=== PATIENT | female | born 1945 | race Hispanic/Latino ===

== ENCOUNTER 2017-01-21 09:43 | Emergency (ER) | payer MEDICARE, OTHER ==
[2017-01-21 09:52] VITALS: BMI 31.4
[2017-01-21] MEDS ORDERED: Sodium Chloride 0.9% 1,000 ML IV STA (10:03)
[2017-01-21] MEDS ORDERED: Alum-Mag Hydrox-Simethicone Susp (30 mL) PO STA (10:04)
[2017-01-21 10:30] LABS: EOS # 0.1 (0.0-0.7); EOS % 2.2 % (1.5-5.0); GRAN # 2.97 (1.4-6.5); GRAN % 71.5 % (50.0-68.0); HEMOGLOBIN 10.8 gm/dL (12.0-16.0); LYMPH # 0.9 (1.2-3.4); LYMPH % 20.5 % (22.0-35.0); MEAN CELL VOLUME 91.3 fL (80.0-105.0); MEAN CORPUSCULAR HEMOGLOBIN 30.4 pg (25.0-35.0); MEAN CORPUSCULAR HGB CONC 33.3 g/dl (31.0-37.0); MEAN PLATELET VOLUME 10.2 fl (7.0-11.0); MONO # 0.2 (0.1-0.6); MONO % 5.8 % (1.0-6.0); PLATELET COUNT 161 10^3/uL (120.0-450.0); RBC 3.55 10^6/uL (3.5-6.1); RED CELL DISTRIBUTION WIDTH 13.1 % (11.5-14.5); WHITE BLOOD COUNT 4.2 10^3/ul (4.5-11.0)
[2017-01-21 10:40] LABS: ALB/GLOB RATIO 1.4 (1.1-1.8); ALBUMIN 3.8 g/dL (3.0-4.8); ALT/SGPT 13 U/L (7-56); AST/SGOT 21 U/L (15-39); BLOOD UREA NITROGEN 21 mg/dL (7-21); CALCIUM 9.2 mg/dL (8.4-10.5); GFR AFRICAN-AMERICAN > 60; GFR NON-AFRICAN AMERICAN > 60; LIPASE 57 U/L (23-300)
[2017-01-21 11:09] LABS: TROPONIN I < 0.01 ng/mL
--- NOTE | 2017-01-21 11:18 | ED PDOC ---
Arrival/HPI - General Historian: Patient, Spouse - General Chief Complaint: Abdominal Pain Time Seen by Provider: 01/21/17 10:03 - History of Present Illness Narrative History of Present Illness (Text): 71 F with PMH of HTN, Parkinson's disease, GERD presents to ED with complaint of epigastric discomfort and nausea. Patient states that it started yesterday while she was at her niece's birthday alliance party. She states that she ate a pretzel with spicy mustard and shortly after she developed symptoms. Patient states pain is minimal and more of a discomfort. She reports its located in epigastric region with radiation to above xiphoid. Mylanta helped alleviate her discomfort but returned shortly after. Denies fever/chills, cp, palpitations, sob, vomiting , diarrhea, incontinence, numbness/tingling. (Hnug Henderson) Past Medical History - Provider Review Nursing Documentation Reviewed: Yes - Travel History Have you recently traveled outside [place] w/in the past 3 mons?: No - Infectious Disease Hx of Infectious Diseases: None - Tetanus Immunization Tetanus Immunization: Unknown - Cardiac Hx Hypertension: Yes - Neurological Hx Parkinson's Disease: Yes - Musculoskeletal/Rheumatological Hx Arthritis: Yes - Psychiatric Hx Depression: No Hx Emotional Abuse: No Hx Physical Abuse: No Hx Substance Use: No - Past Surgical History Past Surgical History: No Previous - Anesthesia Hx Anesthesia: No - Suicidal Assessment Feels Threatened In Home Enviroment: No Family/Social History - Physician Review Nursing Documentation Reviewed: Yes Family/Social History: Unknown Family HX Smoking Status: Never Smoked Hx Alcohol Use: No Hx Substance Use: No Hx Substance Use Treatment: No Allergies/Home Meds Allergies/Adverse Reactions: Allergies Penicillins Allergy (Verified 01/21/17 09:53) RASH Home Medications: Home Meds Medication Instructions Recorded Confirmed Losartan [Cozaar] 50 mg PO 10/19/13 10/19/13 Propranolol Hydrochloride [Inderal] 10 mg PO BID 10/19/13 10/19/13 Review of Systems - Review of Systems Constitutional: absent: Fatigue, Weight Change, Fevers Eyes: absent: Vision Changes, Photophobia, Eye Pain ENT: absent: Hearing Changes, Tinnitus, TMJ Pain, Voice Changes, Sore Throat, Rhinorrhea, Epistaxis, Sinus Congestion Respiratory: absent: SOB, Cough, Sputum, Wheezing Cardiovascular: Chest Pain. absent: Palpitations, Edema, Calf Pain, ROSAS, Orthopnea, Syncope Gastrointestinal: Abdominal Pain, Nausea. absent: Diarrhea, Vomiting Genitourinary Female: absent: Dysuria, Frequency, Hematuria Musculoskeletal: Arthralgias, Myalgias Skin: absent: Skin Lesions, Laceration Neurological: absent: Headache, Dizziness Endocrine: absent: Diaphoresis, Polyuria, Polydipsia Hemo/Lymphatic: absent: Adenopathy, Easy Bleeding, Easy Bruising Psychiatric: absent: Anxiety, Depression, Suicidal Ideation Physical Exam Vital Signs Reviewed: Yes Temperature: Afebrile Blood Pressure: Hypertensive Pulse: Regular Respiratory Rate: Normal Appearance: Positive for: Uncomfortable Pain Distress: Mild Mental Status: Positive for: Alert and Oriented X 3 - Systems Exam Head: Present: Atraumatic, Normocephalic Pupils: Present: PERRL Extroacular Muscles: Present: EOMI Conjunctiva: Present: Normal Ears: Present: Normal Mouth: Present: Moist Mucous Membranes Pharnyx: Present: Normal Nose (External): Present: Atraumatic Nose (Internal): Present: Normal Inspection Neck: Present: Normal Range of Motion Respiratory/Chest: Present: Clear to Auscultation, Good Air Exchange Cardiovascular: Present: Regular Rate and Rhythm, Normal S1, S2, Peripheal Pulses Present Abdomen: Present: Normal Bowel Sounds. No: Tenderness, Distention, Peritoneal Signs, Rebound, Guarding Back: No: CVA Tenderness Upper Extremity: Present: NORMAL PULSES, Neurovascularly Intact, Capillary Refill < 2s Lower Extremity: Present: CALF TENDERNESS (Right), NORMAL PULSES, Swelling, Neurovascularly Intact, Capillary Refill < 2 s, Other (scattered small ecchymosis ) Neurological: Present: GCS=15, CN II-XII Intact, Speech Normal, Motor Func Grossly Intact, Normal Sensory Function Skin: Present: Warm, Dry, Normal Color Lymphatic: No: Cervical Adenopathy, Axillary Adenopathy, Inguinal Adenopathy Psychiatric: Present: Alert, Oriented x 3, Normal Insight, Normal Concentration Vital Signs Temp Pulse Resp BP Pulse Ox 01/21/17 13:20 98 F 80 16 152/80 H 98 01/21/17 11:30 62 16 154/84 H 98 01/21/17 10:12 55 L 19 163/83 H 99 01/21/17 09:55 97.9 F 55 L 18 182/94 H 98 Medical Decision Making Re-evaluation Time: 01:00 Reassessment Condition: Re-examined, Improved ED Course and Treatment: CBC, CMP, CXR, LE doppler, EKG, cardiac enzymes ordered. IV fluids, Zofran, IV pepcid, and Maalox given. EKG sinus sophy at 53 bpm. Cardiac enzymes negative. LE doppler negative. Labs reviewed and no significant change from baseline. Patient feeling better, medically stable for discharge. (Hung Henderson) - Lab Interpretations Lab Results: 01/21/17 10:15 01/21/17 10:15 Lab Results 01/21/17 10:15: Sodium 142, Potassium 3.9, Chloride 108 H, Carbon Dioxide 27, Anion Gap 11, BUN 21, Creatinine 0.9, Est GFR ( Amer) > 60, Est GFR (Non- Af Amer) > 60, Random Glucose 101, Calcium 9.2, Total Bilirubin 0.9, AST 21, ALT 13, Alkaline Phosphatase 58, Lactate Dehydrogenase 502, Total Creatine Kinase 124, Troponin I < 0.01, Total Protein 6.5, Albumin 3.8, Globulin 2.7, Albumin/Globulin Ratio 1.4, Lipase 57 01/21/17 10:15: WBC 4.2 L, RBC 3.55, Hgb 10.8 L, Hct 32.4 L, MCV 91.3, MCH 30.4 , MCHC 33.3, RDW 13.1, Plt Count 161, MPV 10.2, Gran % 71.5 H, Lymph % (Auto) 20.5 L, [place] % (Auto) 5.8, Eos % (Auto) 2.2, Baso % (Auto) 0.0, Gran # 2.97, Lymph # 0.9 L, [place] # 0.2, Eos # 0.1, Baso # 0.00 - RAD Interpretation Radiology Orders: 01/21/17 11:05 CHEST PORTABLE [RAD] Stat 01/21/17 11:10 DUPLEX LOWER EXTRM VEIN BILAT [US] Stat - Medication Orders Current Medication Orders: Discontinued Medications Al Hydrox/Mg Hydrox/Simethicone (Maalox Plus 30 Ml) 30 ml PO STAT STA Stop: 01/21/17 10:05 Last Admin: 01/21/17 10:27 Dose: 30 ml Famotidine (Pepcid) 20 mg IVP STAT STA Stop: 01/21/17 10:04 Last Admin: 01/21/17 10:27 Dose: 20 mg Sodium Chloride (Sodium Chloride 0.9%) 1,000 mls @ 100 mls/hr IV .Q10H STA Stop: 01/21/17 20:02 Last Admin: 01/21/17 10:26 Dose: 100 mls/hr Ondansetron HCl (Zofran Inj) 4 mg IVP STAT STA Stop: 01/21/17 10:04 Last Admin: 01/21/17 10:27 Dose: 4 mg - PA / METAL DRAWER / Resident Statement MD/DO has reviewed & agrees with the documentation as recorded. MD/DO has examined the patient and agrees with the treatment plan. Disposition/Present on Arrival - Present on Arrival Any Indicators Present on Arrival: No History of DVT/PE: No History of Uncontrolled Diabetes: No Urinary Catheter: No History of Decub. Ulcer: No History Surgical Site Infection Following: None - Disposition Have Diagnosis and Disposition been Completed?: Yes Disposition Time: 01:00 Patient Plan: Discharge - Disposition Diagnosis: Gastritis Disposition: HOME/ ROUTINE Condition: STABLE Discharge Instructions (ExitCare): Gastritis (ED) Additional Instructions: Thank you for letting us take care of you today. Your provider was Dr. Henderson /Dr. Dow. You were treated for Gastritis. The emergency medical care you received today was directed at your acute symptoms. If you were prescribed any medication, please fill it and take as directed. It may take several days for your symptoms to resolve. Return to the Emergency Department if your symptoms worsen, do not improve, or if you have any other problems. Please contact your doctor or call one of the physicians/clinics you have been referred to that are listed on the Patient Visit Information form that is included in your discharge packet. Bring any paperwork you were given at discharge with you along with any medications you are taking to your follow up visit. Our treatment cannot replace ongoing medical care by a primary care provider (PCP) outside of the emergency department. Thank you for allowing the [facility] team to be part of your care today. If you had an X-Ray or CT scan: A Radiologist will review the ED reading if any change in treatment is needed we will contact you. If you had a blood, urine, or wound culture: It will take several days for the results, if any change in treatment is needed we will contact you. If you had an STI test: It will take 48 hours for the results. Please call after 1 week if you have not heard back. Take Zantac as prescribed Avoid alcohol, smoking, caffeine, chocolate, spicy foods Follow up with PMD in 2-3 days Please return to ED if symptoms persist or condition worsens Prescriptions: Ranitidine HCl [Zantac] 150 mg PO BID #20 tablet Referrals: oJse Fuentes MD [Primary Care Provider] - Follow up with primary
--- NOTE | 2017-01-21 11:35 | RAD ---
HISTORY: r/o infiltrate COMPARISON: 07/27/2016. FINDINGS: LUNGS: There is mild pulmonary venous congestion. No focal consolidation. There is linear scarring in the left lung base. PLEURA: No significant pleural effusion identified, no pneumothorax apparent. CARDIOVASCULAR: The heart is normal in size. OSSEOUS STRUCTURES: No significant abnormalities. VISUALIZED UPPER ABDOMEN: Normal. OTHER FINDINGS: None. IMPRESSION: Mild pulmonary venous congestion. No active pulmonary disease.
[2017-01-21 13:51] VITALS: RESP 16; O2SAT 98
[2017-01-21 14:12] VITALS: BP 152/80; PULSE 80; TEMP 98
--- NOTE | 2017-01-21 16:49 | US ---
HISTORY: Leg pain and swelling. Evaluate for DVT PHYSICIAN(S): Eric Vela MD. TECHNIQUE: Duplex sonography and color-flow Doppler with graded compression were used to evaluate the deep venous systems of both lower extremities. FINDINGS: The visualized deep venous systems of both lower extremities are sonographically normal and compressible. Normal wave forms and augmentation are seen. There is no sonographic evidence for deep venous thrombosis in the visualized segments of both lower extremities. IMPRESSION: No sonographic evidence for deep venous thrombosis in the visualized segments of both lower extremities.
--- NOTE | 2017-01-21 20:56 | CARD ---
APPROVED REPORT EKG Measurement Heart [id number] IL 160P [id number] <Conclusion> Sinus bradycardia Minimal voltage criteria for LVH, may be normal variant Borderline ECG
== END 2017-01-21 14:22 | disposition home or self-care (01) ==
LOC: ED 09:43
DX: K29.70 Gastritis, unspecified, without bleeding (principal); I10 Essential (primary) hypertension; G20 Parkinson's disease; K21.9 Gastro-esophageal reflux disease without esophagitis
CPT/HCPCS: 71010; 80053; 82550; 83615; 83690; 84484; 85025; 93005; 93970; 96361; 96374; 96375; 99285; J2405; J7040

== ENCOUNTER 2017-06-25 06:13 | Inpatient (IN) | payer MEDICARE, OTHER, BC ==
[2017-06-25 06:17] VITALS: BMI 33.3
--- NOTE | 2017-06-25 07:40 | ED PDOC ---
Arrival/HPI - General Chief Complaint: Trauma Time Seen by Provider: 06/25/17 07:06 Historian: Patient, Spouse - History of Present Illness Narrative History of Present Illness (Text): 06/25/17 07:15 A 72 year old female, whose past medical history includes Parkinson's disease, arthritis, and hypertension, presents to the emergency department status post fall, which occurred prior to arrival. The patient states that she had a right hip replacement 8 weeks ago and her first week home from rehab she did not want to disturb her so she got out of bed on her own and fell backwards from walker. The patient is unsure if she hit her head but states she did hit her right shoulder. She denies any fever, chest pain, shortness of breath, dizziness, headaches, loss of consciousness, right hip pain, back pain, or any other complaints at this time. Time/Duration: Prior to Arrival Symptom Onset: Sudden Symptom Course: Unchanged Activities at Onset: Light Context: Walking, Home Past Medical History - Provider Review Nursing Documentation Reviewed: Yes - Infectious Disease Hx of Infectious Diseases: None - Tetanus Immunization Tetanus Immunization: Unknown - Cardiac Hx Cardiac Disorders: Yes Hx Hypertension: Yes - Pulmonary Hx Respiratory Disorders: No - Neurological Hx Neurological Disorder: Yes Hx Parkinson's Disease: Yes - HEENT Hx HEENT Disorder: No - Renal Hx Renal Disorder: No - Endocrine/Metabolic Hx Endocrine Disorders: No - Hematological/Oncological Hx Blood Disorders: No - Integumentary Hx Dermatological Disorder: No - Musculoskeletal/Rheumatological Hx Musculoskeletal Disorders: Yes Hx Arthritis: Yes - Gastrointestinal Hx Gastrointestinal Disorders: No - Genitourinary/Gynecological Hx Genitourinary Disorders: No - Psychiatric Hx Psychophysiologic Disorder: No Hx Depression: No Hx Emotional Abuse: No Hx Physical Abuse: No Hx Substance Use: No - Past Surgical History Past Surgical History: No Previous - Surgical History Hx Open Reduction Internal Fixation: Yes Other/Comment: R hip replacement - Anesthesia Hx Anesthesia: No - Suicidal Assessment Feels Threatened In Home Enviroment: No Family/Social History - Physician Review Nursing Documentation Reviewed: Yes Family/Social History: No Known Family HX Smoking Status: Never Smoked Hx Alcohol Use: No Hx Substance Use: No Hx Substance Use Treatment: No Allergies/Home Meds Allergies/Adverse Reactions: Allergies Penicillins Allergy (Verified 06/25/17 12:09) RASH Home Medications: Home Meds Medication Instructions Recorded Confirmed Carbidopa/Levodopa 1 tab PO TID 06/25/17 06/25/17 [Carbidopa-Levodopa 25-100 Tab] Carvedilol [Coreg] 3.125 mg PO BID 06/25/17 06/25/17 Clonazepam [Klonopin] 0.5 mg PO TID 06/25/17 06/25/17 Diclofenac Sodium [Voltaren] 75 mg PO BID 06/25/17 06/25/17 Escitalopram [Lexapro] 20 mg PO DAILY 06/25/17 06/25/17 Gabapentin [Neurontin] 100 mg PO BID 06/25/17 06/25/17 Metoclopramide [Reglan] 5 mg PO TID 06/25/17 06/25/17 Omeprazole [Omeprazole] 40 mg PO DAILY 06/25/17 06/25/17 Rosuvastatin Calcium [Crestor] 10 mg PO DAILY 06/25/17 06/25/17 Zolpidem [Ambien] 5 mg PO DAILY 06/25/17 06/25/17 Review of Systems - Physician Review All systems were reviewed & negative as marked: Yes - Review of Systems Constitutional: absent: Fevers Respiratory: absent: SOB Cardiovascular: absent: Chest Pain Musculoskeletal: Other (right shoulder pain ). absent: Back Pain, Neck Pain Neurological: absent: Headache, Dizziness Physical Exam - Physical Exam Narrative Physical Exam (Text): 06/25/17 07:43 Head: Tender to posterior scalp although no bony deformity, no ecchymosis noted , no laceration noted, negative Young's sign. Eyes: PERRL. EOMI. Conjunctivae are not pale. ENT: Mucous membranes are moist and intact. Oropharynx is clear and symmetric. Neck: Supple. Full ROM. No JVD. No lymphadenopathy. Posterior midline neck pain, no deformity. Cardiovascular: Regular rate. Regular rhythm. No murmurs, rubs, or gallops. Distal pulses are 2+ and symmetric. Pulmonary/Chest: No evidence of respiratory distress. Clear to auscultation bilaterally. No wheezing, rales or rhonchi. Abdominal: Soft and non-distended. There is no tenderness. No rebound, guarding, or rigidity. No organomegaly. Good bowel sounds. Back: No CVA tenderness. Extremities: Pain to right anterior shoulder, no deformity, no clavicular pain, full range of motion of shoulder, elbow and wrist, pain to right knee with palpation anteriorly but no ligamentous laxity, there is pain with flexion and extension of knee, pain to right ankle lateral malleolus, no deformity or soft tissue swelling, mild pain to right lateral hip, no left sided pain noted, strong distal pulses Skin: Skin is warm and dry. No lacerations or abscess. Neurological: Alert, awake. Motor and sensory intact, mild tremor at baseline. No slurred speech or facial droop. Psychiatric: Good eye contact. Normal interaction, affect, and behavior. Vital Signs Reviewed: Yes Vital Signs Temp Pulse Resp BP Pulse Ox 06/25/17 09:34 67 182/90 H 06/25/17 09:18 98.5 F 68 19 189/94 H 97 06/25/17 06:18 98.1 F 62 18 164/87 H 96 Temperature: Afebrile Blood Pressure: Hypertensive Pulse: Regular Respiratory Rate: Normal Appearance: Positive for: Well-Appearing, Non-Toxic, Uncomfortable Pain Distress: Mild Mental Status: Positive for: Alert and Oriented X 3 Medical Decision Making ED Course and Treatment: 06/25/17 07:44 Impression: A 72 year old female, status post fall. Differential Diagnosis included but are not limited to: Contusion vs. vlose headed injury vs. fracture Plan: -- Cervical Spine CT -- HEad CT -- EKG -- Radiology: ankle right, hip right, knee w' patella right -- Urinalysis -- Reassess and disposition Progress Notes: Patient with recent hip surgery, sustained fall. No neuro deficits at this time , but given hx of Parkinsons as well as current injuries unable to ambulate. 06/25/17 08:38 PROCEDURE: CT Cervical Spine without contrast [employer] Service Team Member : Saray Trujillo MD Report Date : 06/25/2017 08:23:59 HISTORY:<neck pain after fall> COMPARISON:None available. FINDINGS: VERTEBRAE:No fracture. Normal alignment. No destructive bony lesion. DISCS/SPINAL CANAL/NEURAL FORAMINA:Moderate degenerative disc changes more prominent at C5-C6. Moderate narrowing of the intervertebral disc space at C5- C6. Osteophyte disc bulge complex noted at C5-C6 and C6-C7. PARASPINAL SOFT TISSUES:Unremarkable. OTHER FINDINGS:Mild diffuse osteopenia is noted. IMPRESSION: No evidence of acute displaced fracture or subluxation at the cervical spine. Moderate degenerative changes more prominent at C5-C6. Mild diffuse osteopenia. PROCEDURE: CT HEAD WITHOUT CONTRAST. Seafood Service Team Member : Eric Mclain MD Report Date : 06/25/2017 08:18:14 HISTORY:fall, head injury, headache COMPARISON:None available. FINDINGS: HEMORRHAGE:No intracranial hemorrhage. BRAIN:No mass effect or edema. Minimal atrophy consistent with patient age. No evidence of acute infarct. VENTRICLES:Unremarkable. No hydrocephalus. CALVARIUM:Unremarkable. PARANASAL SINUSES:Unremarkable as visualized. No significant inflammatory changes. MASTOID AIR CELLS:Unremarkable as visualized. No inflammatory changes. OTHER FINDINGS:None. IMPRESSION: No intracranial hemorrhage. Unremarkable examination. Labs and imaging reviewed. Will admit to Dr. Katz service for difficulty ambulating, multiple contusions, closed head injury. - Lab Interpretations Lab Results: 06/25/17 07:53 06/25/17 07:53 Lab Results 06/25/17 07:53: Sodium 145, Potassium 3.9, Chloride 107, Carbon Dioxide 28, Anion Gap 14, BUN 16, Creatinine 0.8, Est GFR ( Amer) > 60, Est GFR (Non- Af Amer) > 60, Random Glucose 94, Calcium 9.9, Total Bilirubin 0.7, AST 31, ALT 36, Alkaline Phosphatase 71, Lactate Dehydrogenase 497, Total Creatine Kinase 52 , Troponin I < 0.01, Total Protein 6.9, Albumin 4.0, Globulin 2.9, Albumin/ Globulin Ratio 1.4 06/25/17 07:53: PT 12.8 H, INR 1.16 H, APTT 27.5 06/25/17 07:53: WBC 5.7 D, RBC 3.82, Hgb 11.3 L, Hct 34.6 L, MCV 90.6, MCH 29.6 , MCHC 32.7, RDW 14.4, Plt Count 228, MPV 9.5, Gran % 76.7 H, Lymph % (Auto) 16.2 L, [place] % (Auto) 5.1, Eos % (Auto) 1.8, Baso % (Auto) 0.2, Gran # 4.37, Lymph # 0.9 L, [place] # 0.3, Eos # 0.1, Baso # 0.01 06/25/17 07:48: Urine Color Straw, Urine Appearance Clear, Urine pH 6.5, Ur Specific [place] <= 1.005, Urine Protein Negative, Urine Glucose (UA) Negative, Urine Ketones Negative, Urine Blood Trace-intact H, Urine Nitrate Negative, Urine Bilirubin Negative, Urine Urobilinogen 0.2, Ur Leukocyte Esterase Negative , Urine RBC 0 - 2, Urine WBC Negative, Ur Epithelial Cells 0 - 2, Calcium Oxalate Crystal Rare, Urine Bacteria Trace - RAD Interpretation Radiology Orders: 06/25/17 07:21 HEAD W/O CONTRAST [CT] Stat CHEST ONE VIEW [RAD] Stat 06/25/17 07:22 CERVICAL SPINE W/O CONTRAST [CT] Stat 06/25/17 07:23 KNEE W PATELLA RIGHT 3 VIEW [RAD] Stat SHOULDER RIGHT [RAD] Stat 06/25/17 07:24 ANKLE RIGHT 3 VIEWS ROUTINE [RAD] Stat Hip Right [HIP MIN 2V W/ PELVIS RT] [RAD] Stat - Medication Orders Current Medication Orders: Carbidopa/Levodopa (Sinemet) 1 tab PO TID COUNTS INCLUDE 234 BEDS AT THE [facility] Last Admin: 06/28/17 18:36 Dose: 1 tab Carvedilol (Coreg) 3.125 mg PO BID COUNTS INCLUDE 234 BEDS AT THE [facility] Last Admin: 06/28/17 18:35 Dose: 3.125 mg Clonazepam (Klonopin) 0.5 mg PO BID PRN; Protocol PRN Reason: Anxiety Last Admin: 06/28/17 18:36 Dose: 0.5 mg Behavioural Document 06/28/17 18:36 LMN (Rec: 06/28/17 18:36 N [place] [id number]) Maintenance Maintenance Dose Yes Enoxaparin Sodium (Lovenox) 40 mg SC DAILY COUNTS INCLUDE 234 BEDS AT THE [facility] PRN Reason: Protocol Last Admin: 06/28/17 09:27 Dose: 40 mg Subcutaneous Administrations Document 06/28/17 09:27 LMN (Rec: 06/28/17 09:27 [place] [id number]) Charges for Administration # of Subcutaneous Administrations 1 Escitalopram Oxalate (Lexapro) 20 mg PO DAILY COUNTS INCLUDE 234 BEDS AT THE [facility] Last Admin: 06/28/17 09:27 Dose: 20 mg Gabapentin (Neurontin) 100 mg PO BID COUNTS INCLUDE 234 BEDS AT THE [facility] PRN Reason: Protocol Last Admin: 06/28/17 18:36 Dose: 100 mg Behavioural Document 06/28/17 18:36 LMN (Rec: 06/28/17 18:36 LMN [place] [id number]) Maintenance Maintenance Dose Yes Metoclopramide HCl (Reglan) 5 mg PO AC COUNTS INCLUDE 234 BEDS AT THE [facility] Last Admin: 06/28/17 16:51 Dose: 5 mg Pantoprazole Sodium (Protonix Ec Tab) 40 mg PO 0600 COUNTS INCLUDE 234 BEDS AT THE [facility] Last Admin: 06/28/17 05:10 Dose: 40 mg Polyethylene Glycol (Miralax) 17 gm PO DAILY COUNTS INCLUDE 234 BEDS AT THE [facility] Last Admin: 06/28/17 09:29 Dose: 17 gm Tramadol HCl (Ultram) 50 mg PO TID COUNTS INCLUDE 234 BEDS AT THE [facility] Last Admin: 06/28/17 18:37 Dose: 50 mg MAR Pain Assessment Document 06/28/17 18:37 LMN (Rec: 06/28/17 18:37 LMN [id number]) Pain Reassessment Is this a pain reassessment? No Presence of Pain Presence of Pain Yes Zolpidem Tartrate (Ambien) 5 mg PO HS COUNTS INCLUDE 234 BEDS AT THE [facility] PRN Reason: Protocol Last Admin: 06/27/17 21:25 Dose: 5 mg Behavioural Document 06/27/17 21:25 BN (Rec: 06/27/17 21:25 BN [place] [id number]) Maintenance Maintenance Dose Yes Re-Assess: Reassess Psych Meds Document 06/27/17 22:25 BN (Rec: 06/28/17 04:50 BN [id number] [place] [facility] [place] Reassess Psych Med Effective Discontinued Medications Carvedilol (Coreg) 3.125 mg PO STAT STA Stop: 06/25/17 09:26 Last Admin: 06/25/17 09:34 Dose: 3.125 mg MAR Pulse and Blood Pressure Document 06/25/17 09:34 LA (Rec: 06/25/17 09:37 LA [id number]) Pulse Pulse Rate (60-90) 67 Blood Pressure Blood Pressure (100/60-150/90) 182/90 Non-Formulary Medication (Omeprazole [Omeprazole]) 40 mg PO DAILY COUNTS INCLUDE 234 BEDS AT THE [facility] Pneumococcal Polyvalent Vaccine (Pneumovax 23 Vaccine) 0.5 ml IM .ONCE ONE Stop: 06/25/17 12:53 - Scribe Statement The provider has reviewed the documentation as recorded by the Scribwil Ordaz Provider Scribe Attestation: All medical record entries made by the Scribe were at my direction and personally dictated by me. I have reviewed the chart and agree that the record accurately reflects my personal performance of the history, physical exam, medical decision making, and the department course for this patient. I have also personally directed, reviewed, and agree with the discharge instructions and disposition. Disposition/Present on Arrival - Present on Arrival Any Indicators Present on Arrival: No History of DVT/PE: No History of Uncontrolled Diabetes: No Urinary Catheter: No History of Decub. Ulcer: No History Surgical Site Infection Following: None - Disposition Have Diagnosis and Disposition been Completed?: Yes Diagnosis: Gait disturbance, Closed head injury, Multiple contusions, Leg pain Disposition: HOSPITALIZED Disposition Time: 09:30 Patient Plan: Admission Patient Problems: Current Active Problems Problem Status Onset Closed head injury Acute Gait disturbance Acute Leg pain Acute Multiple contusions Acute Condition: FAIR
[2017-06-25 08:03] LABS: PH,URINE 6.5 (4.7-8.0); URINE BILIRUBIN NEGATIVE (NEGATIVE); URINE BLOOD TRACE-INTACT (NEGATIVE); URINE GLUCOSE (UA) NEGATIVE (NEGATIVE); URINE KETONE NEGATIVE (NEGATIVE); URINE LEUKOCYTE ESTERASE NEGATIVE Leu/uL (NEGATIVE); URINE PROTEIN NEGATIVE mg/dL (<30 mg/dL); URINE UROBILINOGEN 0.2 E.U./dL (<1 E.U./dL)
[2017-06-25 08:05] LABS: URINE APPEARANCE CLEAR (CLEAR); URINE COLOR STRAW (YELLOW)
[2017-06-25 08:08] LABS: BASO # 0.01 K/mm3 (0.0-2.0); BASO % 0.2 % (0.0-3.0); EOS # 0.1 (0.0-0.7); EOS % 1.8 % (1.5-5.0); GRAN # 4.37 (1.4-6.5); GRAN % 76.7 % (50.0-68.0); HEMATOCRIT 34.6 % (36.0-48.0); LYMPH # 0.9 (1.2-3.4); LYMPH % 16.2 % (22.0-35.0); MEAN CELL VOLUME 90.6 fl (80.0-105.0); MEAN CORPUSCULAR HEMOGLOBIN 29.6 pg (25.0-35.0); MEAN CORPUSCULAR HGB CONC 32.7 g/dl (31.0-37.0); MEAN PLATELET VOLUME 9.5 fl (7.0-11.0); MONO # 0.3 (0.1-0.6); MONO % 5.1 % (1.0-6.0); RED CELL DISTRIBUTION WIDTH 14.4 % (11.5-14.5); WHITE BLOOD COUNT 5.7 10^3/ul (4.5-11.0)
[2017-06-25 08:19] LABS: INR 1.16 (0.93-1.08); PARTIAL THROMBOPLASTIN TIME 27.5 Seconds (25.1-36.5)
--- NOTE | 2017-06-25 08:20 | CT ---
PROCEDURE: CT HEAD WITHOUT CONTRAST. HISTORY: fall, head injury, headache COMPARISON: None available. TECHNIQUE: Axial computed tomography images were obtained through the head/brain without intravenous contrast. Radiation dose: Total exam DLP = 629.69 mGy-cm. This CT exam was performed using one or more of the following dose reduction techniques: Automated exposure control, adjustment of the mA and/or kV according to patient size, and/or use of iterative reconstruction technique. FINDINGS: HEMORRHAGE: No intracranial hemorrhage. BRAIN: No mass effect or edema. Minimal atrophy consistent with patient age. No evidence of acute infarct. VENTRICLES: Unremarkable. No hydrocephalus. CALVARIUM: Unremarkable. PARANASAL SINUSES: Unremarkable as visualized. No significant inflammatory changes. MASTOID AIR CELLS: Unremarkable as visualized. No inflammatory changes. OTHER FINDINGS: None. IMPRESSION: No intracranial hemorrhage. Unremarkable examination.
[2017-06-25 08:24] LABS: ALB/GLOB RATIO 1.4 (1.1-1.8); ALKALINE PHOSPHATASE 71 U/L (38-126); ALT/SGPT 36 U/L (7-56); AST/SGOT 31 U/L (14-36); BILIRUBIN,TOTAL 0.7 mg/dL (0.2-1.3); BLOOD UREA NITROGEN 16 mg/dL (7-21); CALCIUM 9.9 mg/dL (8.4-10.5); CARBON DIOXIDE 28 mmol/L (21-33); CHLORIDE 107 mmol/L (98-107); GFR AFRICAN-AMERICAN > 60; GLUCOSE,RANDOM 94 mg/dL (70-110); POTASSIUM 3.9 mmol/L (3.6-5.0); SODIUM 145 mmol/L (132-148); TOTAL PROTEIN 6.9 g/dL (5.8-8.3)
--- NOTE | 2017-06-25 08:25 | CT ---
PROCEDURE: CT Cervical Spine without contrast HISTORY: <neck pain after fall> COMPARISON: None available. TECHNIQUE: Axial computed tomography images were obtained of the cervical spine without the use of intravenous contrast. Coronal and sagittal reformatted images were created and reviewed. Radiation dose: Total exam DLP = 573.09 mGy-cm. This CT exam was performed using one or more of the following dose reduction techniques: Automated exposure control, adjustment of the mA and/or kV according to patient size, and/or use of iterative reconstruction technique. FINDINGS: VERTEBRAE: No fracture. Normal alignment. No destructive bony lesion. DISCS/SPINAL CANAL/NEURAL FORAMINA: Moderate degenerative disc changes more prominent at C5-C6. Moderate narrowing of the intervertebral disc space at C5-C6. Osteophyte disc bulge complex noted at C5-C6 and C6-C7. PARASPINAL SOFT TISSUES: Unremarkable. OTHER FINDINGS: Mild diffuse osteopenia is noted. IMPRESSION: No evidence of acute displaced fracture or subluxation at the cervical spine. Moderate degenerative changes more prominent at C5-C6. Mild diffuse osteopenia.
[2017-06-25 08:26] LABS: URINE BACTERIA TRACE (NEG); URINE CALCIUM OXALATE CRYSTALS RARE /hpf; URINE EPITHELIAL CELLS 0 - 2 /hpf (0-5); URINE RBC 0 - 2 /hpf (0-2); URINE WBC NEGATIVE /hpf (0-6)
[2017-06-25 08:34] LABS: TROPONIN I < 0.01 ng/mL
--- NOTE | 2017-06-25 09:42 | RAD ---
PROCEDURE: Right Ankle Radiographs. HISTORY: right ankle pain after fall COMPARISON: None FINDINGS: BONES: Normal. No fracture. JOINTS: Normal. No osteoarthritis. Ankle mortise maintained. Talar dome intact SOFT TISSUES: Normal. OTHER FINDINGS: None. IMPRESSION: Normal right ankle radiographs.
--- NOTE | 2017-06-25 10:22 | RAD ---
PROCEDURE: Right Hip Radiographs. HISTORY: right leg pain COMPARISON: None. FINDINGS: BONES: No acute fracture. JOINTS: Status post right hip arthroplasty. No evidence of prosthesis loosening. Prosthesis grossly intact. SOFT TISSUES: Normal. OTHER FINDINGS: None. IMPRESSION: Status post right hip arthroplasty. Otherwise unremarkable.
--- NOTE | 2017-06-25 10:22 | RAD ---
PROCEDURE: Right Knee Radiographs. HISTORY: knee pain after fall COMPARISON: None. FINDINGS: BONES: No acute fracture. JOINTS: Tricompartmental osteoarthritis, most pronounced on the lateral joint compartment. No articular erosion. JOINT EFFUSION: None. OTHER FINDINGS: None. IMPRESSION: Tricompartmental osteoarthritis. No acute fracture.
--- NOTE | 2017-06-25 10:23 | RAD ---
PROCEDURE: Radiographs of the Right Shoulder HISTORY: fall, right shoulder pain COMPARISON: No prior. FINDINGS: BONES: Normal. No fracture. JOINTS: Normal. Glenohumeral and acromioclavicular joints preserved. No osteoarthritis. SOFT TISSUES: Normal. OTHER FINDINGS: None. IMPRESSION: Normal radiographs of the right shoulder.
--- NOTE | 2017-06-25 10:24 | RAD ---
PROCEDURE: CHEST RADIOGRAPH, 1 VIEW HISTORY: fall COMPARISON: 01/21/2017 FINDINGS: LUNGS: No infiltrate. Linear scar/atelectasis at left lung base, laterally. Unchanged. No pulmonary mass. PLEURA: No pneumothorax or pleural fluid seen. CARDIOVASCULAR: Normal. OSSEOUS STRUCTURES: No significant abnormalities. VISUALIZED UPPER ABDOMEN: Normal. OTHER FINDINGS: None. IMPRESSION: No active disease.
--- NOTE | 2017-06-25 12:13 | CARD ---
APPROVED REPORT EKG Measurement Heart [id number] <Conclusion> Normal sinus rhythm LAD STTW changes No change
[2017-06-25] MEDS ORDERED: Influenza Vaccine 60 mcg/0.5 mL SYR (4YR UP) IM ONE (12:52)
[2017-06-25] MEDS ORDERED: Pneumococcal 23-Valent Vaccine IM ONE (12:52)
--- NOTE | 2017-06-25 14:09 | CP.PCM.HP ---
History of Present Illness - History of Present Illness History of Present Illness: 72 year old female with history of Parkinson's disease, hypertension, gastroesophageal reflux and arthritis presented to the emergency room with pain after suffering from a fall at home. Patient had right hip arthroplasty about 8 weeks ago and was discharged from rehab last week. She got out of bed on her own this morning and then fell backwards. She denies loss of consciousness, chest pain of shortness of breath. She complains of pain in her right hip, knee and leg. She is unable to ambulate at this time. Present on Admission - Present on Admission Any Indicators Present on Admission: No History of DVT/PE: No History of Uncontrolled Diabetes: No Urinary Catheter: No Decubitus Ulcer Present: No Review of Systems - Constitutional Constitutional: absent: Chills, Fever, Headache - Cardiovascular Cardiovascular: absent: Chest Pain, Diaphoresis, Dyspnea - Respiratory Respiratory: absent: Cough, Dyspnea, Hemoptysis - Gastrointestinal Gastrointestinal: absent: Abdominal Pain, Constipation, Vomiting Past Patient History - Infectious Disease Hx of Infectious Diseases: None - Tetanus Immunizations Tetanus Immunization: Unknown - Past Social History Smoking Status: Former Smoker - CARDIAC Hx Cardiac Disorders: Yes Hx Hypercholesterolemia: Yes Hx Hypertension: Yes - PULMONARY Hx Respiratory Disorders: Yes (SMOKED CIGARETTES H/O PK 1/2 QUIT) - NEUROLOGICAL Hx Neurological Disorder: Yes Hx Parkinson's Disease: Yes - HEENT Hx HEENT Problems: No - RENAL Hx Chronic Kidney Disease: No - ENDOCRINE/METABOLIC Hx Endocrine Disorders: No - HEMATOLOGICAL/ONCOLOGICAL Hx Blood Disorders: No - INTEGUMENTARY Hx Dermatological Problems: Yes Other/Comment: 06-25-17 RIGHT HIP SCARRING FROM POST REPLACEMENT. BRUISED RIGHT SHOULDER FROM FALL. - MUSCULOSKELETAL/RHEUMATOLOGICAL Hx Musculoskeletal Disorders: Yes Hx Arthritis: Yes Hx Falls: Yes (RECENT- 06-25-17) - GASTROINTESTINAL Hx Gastrointestinal Disorders: Yes (GASTRITIS) Hx Gastroesophageal Reflux: Yes - GENITOURINARY/GYNECOLOGICAL Hx Genitourinary Disorders: Yes Hx Urinary Tract Infection: Yes - PSYCHIATRIC Hx Psychophysiologic Disorder: Yes (INSOMNIA,SMOKED CIGARETTES H/O) Hx Anxiety: Yes Hx Depression: Yes Hx Emotional Abuse: No Hx Physical Abuse: No Hx Substance Use: No - SURGICAL HISTORY Hx Surgeries: Yes Other/Comment: R hip replacement - ANESTHESIA Hx Anesthesia: No Meds Allergies/Adverse Reactions: Allergies Allergy/AdvReac Type Severity Reaction Status Date / Time Penicillins Allergy RASH Verified 06/25/17 12:09 Physical Exam - Constitutional Appears: No Acute Distress - Head Exam Head Exam: ATRAUMATIC, NORMOCEPHALIC - Respiratory Exam Respiratory Exam: Clear to Auscultation Bilateral, NORMAL BREATHING PATTERN - Cardiovascular Exam Cardiovascular Exam: REGULAR RHYTHM, +S1, +S2 - GI/Abdominal Exam GI & Abdominal Exam: Normal Bowel Sounds, Soft. absent: Tenderness Results - Vital Signs Recent Vital Signs: Last Vital Signs Temp 98.1 F 06/25/17 12:08 Pulse 64 06/25/17 12:08 Resp 16 06/25/17 12:08 BP 176/91 H 06/25/17 12:08 Pulse Ox 97 06/25/17 10:50 - Labs Result Diagrams: 06/25/17 07:53 06/25/17 07:53 Assessment & Plan - Assessment and Plan (Free Text) Assessment: s/p fall Right knee and leg pain Contusion right shoulder Parkinson's disease GERD Migraine Arthritis Plan: Patient has pain of her right leg after fall. Will give Ultram for pain. continue Sinemet for Parkinson's disease continue Omeprazole for GERD We will consult Dr. Williamson for the pain of her right leg. She had right hip arthroplasty about 8 weeks ago at [facility].
--- NOTE | 2017-06-26 05:46 | CON ---
DATE: 06/25/2017 ORTHOPEDIC CONSULTATION The patient is a 72-year-old female. LOCATION: In room 573, bed 1. HISTORY OF PRESENT ILLNESS: The patient . The patient slipped and fell at home today and injured her right shoulder, her right knee, her right ankle, and the right hip. PAST MEDICAL HISTORY: Past history that she had her right hip replaced approximately 5 to 6 weeks ago with cemented prosthesis for rheumatoid arthritis. When she fell, she bumped her right hip and contused her right shoulder. She has an ecchymotic spot posterior 4 inches x 6 inches, right ankle swollen from rheumatoid arthritis type of picture, but the x-rays are within normal limits and all the x-rays done for workup are within normal limits of the right knee, right shoulder, and right ankle. The hip had a well placed prosthesis and she injured her head, but the CAT scan of cervical spine was within normal limits. The patient can lift her legs well off the bed. I am going to start early physical therapy to mobilize her so that she does not get stiff and hopefully she would be able to ambulate with a walker. FINAL DIAGNOSES: Contusion of right knee, right shoulder, right ankle, and contusion of postoperative right hip prosthesis. Mina Williamson DO
[2017-06-26] MEDS: Pantoprazole 40 mg EC Tab PO SCH (07:57)
[2017-06-26] MEDS: Enoxaparin 40 mg Syringe SC SCH (09:19)
--- NOTE | 2017-06-26 13:19 | PN ---
DATE: SUBJECTIVE: The patient is in [facility] in [place]. The patient is in room number 573, bed 1. She was admitted yesterday having had fall in the house and she has severe pain in the right side of her leg and unable to get up from the floor. She also had contusion in the right side, the back of chest in the scapular area. The patient had a recent fracture of right hip, which was treated at [facility] in [place]. The patient's past history significant that she has history of severe osteoarthritis involving multiple joints especially both knees. The patient also has osteoarthritis of hip, shoulders and elbow. The patient has history of hypertension. The patient has history of Parkinson's disease. The patient has history of gastritis, dyspepsia, reflux esophagitis, and peripheral neuritis. The patient also takes medication for hyperlipidemia. The patient's home medications consist of Ambien 5 mg at bedtime for sleep. The patient takes Crestor 10 mg daily. The patient is on omeprazole 40 mg daily and Reglan 5 mg three times a day before meals. The patient is on Neurontin 100 mg b.i.d., Lexapro 20 mg daily, Voltaren 75 mg b.i.d., Klonopin 0.5 mg three times a day p.r.n. for anxiety, Coreg 3.125 mg b.i.d. for hypertension, and Sinemet 25/100 one three times a day. The patient is on heart-healthy diet. Since this morning, the patient complains of pain when she tries to bend her leg. PHYSICAL EXAMINATION: VITAL SIGNS: Her pulse is 64, blood pressure is 176/91, and respirations are 16. The patient's O2 sat is 97% on room air and temperature is 98.1. HEENT: Head is normocephalic. NECK: Thyroid is not enlarged. JVP is flat. No lymphadenopathy. LUNGS: Trachea is central. Breath sounds are vesicular. No adventitious sounds. HEART: NSR. S1 and S2 present. No murmurs. ABDOMEN: Soft. Liver and spleen not palpable. CENTRAL NERVOUS SYSTEM: The patient has evidence of Parkinson's disease. LABORATORY DATA: The patient's blood work; the hemoglobin is 11.3. The patient's chemistry is within normal limits. PLAN: We will continue current management, evaluation, physical therapy and rehabilitation to ambulate and to provide her with the ability to carry out activities of daily living. Claudette Fuentes MD MTDC[facility]
[2017-06-27] MEDS: Pantoprazole 40 mg EC Tab PO SCH (06:18)
[2017-06-27] MEDS: Enoxaparin 40 mg Syringe SC SCH (10:20)
--- NOTE | 2017-06-27 10:56 | PN ---
DATE: SUBJECTIVE: The patient is in [facility] in [place], room 573, bed 1. She was admitted after a fall, inability to get up and walk, pain in the right leg. The patient had recent history of fracture of right hip. The patient has a history of hypertension, Parkinson disease, degenerative arthritis, migraine. The patient is seen this morning. She feels somewhat improved. She is getting evaluation, physical therapy, ambulation and to improve the condition to meet the standard for activities of daily living, to get the patient out of bed and to be able to walk to the bathroom and back to the bed. PHYSICAL EXAMINATION: VITAL SIGNS: This morning, pulse is 76, blood pressure 130/70, respirations are 20, O2 sat 98% on room air. HEENT: Head is normocephalic. LUNGS: Clear. HEART: Normal sinus rhythm. ABDOMEN: Soft. Liver and spleen not palpable. 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 She has severe disability at this time due to the fact that she has arthritis and for related pain and discomfort. The patient is also known to have ALLERGY TO PENICILLIN. At this time, the patient is being evaluated. She will be in Transitional Care Unit for further physical therapy and rehabilitation prior to being discharged. MEDICATIONS: Consist of Ambien for sleep. The patient is on Coreg 3.125 mg b.i.d. The patient is on Klonopin 0.5 mg t.i.d. The patient is on Lexapro 20 mg daily, Lovenox 40 mg subcutaneously for prevention of DVT. The patient is on Neurontin 100 mg b.i.d., pantoprazole 40 mg daily. The patient is on Reglan 5 mg three times a day before the meals, Sinemet 25/100 three times a day. The patient is on Ultram p.r.n. for pain. PLAN: Diet is 2 g sodium heart-healthy diet. We will continue current management, followup and expect the patient to be discharged and transferred to Transitional Care Unit as soon as she meets the standards. Claudette Fuentes MD MTDCindy
[2017-06-28] MEDS: Pantoprazole 40 mg EC Tab PO SCH (05:10)
[2017-06-28] MEDS: Enoxaparin 40 mg Syringe SC SCH (09:27)
[2017-06-28] MEDS: POLYETHYLENE GLYCOL 3350 17 GM/Dose PACKET PO SCH (09:29)
--- NOTE | 2017-06-28 12:04 | PN ---
DATE: SUBJECTIVE: The patient is in [facility] in [place]. She is a lady who is 72 years of age, she is in room number 573, bed 1 as mentioned. The patient was admitted after a fall, inability to walk and stand. The patient has past history of recent fracture of the hip. The patient has a history of Parkinson's syndrome. The patient has history of osteoarthritis, severe obesity, hypertension, and migraine. The patient has depression. PHYSICAL EXAMINATION: VITAL SIGNS: This morning, pulse is 60 and blood pressure is 150/80. The patient's O2 saturation is 94% on room air. HEENT: The patient's head is normocephalic. NECK: Supple. Carotid pulses are present bilaterally. HEART: Normal sinus rhythm. S1 and S2 present. LUNGS: Trachea is central. Breath sounds are vesicular. No adventitious sounds heard. ABDOMEN: Soft and obesity present. CENTRAL NERVOUS SYSTEM: The patient has evidence of Parkinson syndrome. MEDICATIONS: Consist of Sinemet 25/100 three times a day and pantoprazole 40 mg daily. The patient is on Neurontin 100 mg b.i.d. and Lovenox for prophylaxis. The patient is on Klonopin 0.5 mg three times a day for anxiety, carvedilol, which is Coreg 3.125 mg b.i.d. and Ambien 5 mg at bedtime for sleep. IMPRESSION AND PLAN: The patient's condition is improving. She will be discharged and transferred to Transitional Care Unit for further rehabilitation, and physical therapy. Claudette Fuentes MD [facility]
[2017-06-29 02:42] VITALS: O2SAT 95
[2017-06-29] MEDS: Pantoprazole 40 mg EC Tab PO SCH (05:59)
--- NOTE | 2017-06-29 08:16 | CP.PCM.PN ---
Subjective - Date & Time of Evaluation Date of Evaluation: 06/29/17 Time of Evaluation: 07:55 - Subjective Subjective: Patient is seen this morning. She is feeling better although she does feel tired. Objective - Vital Signs/Intake and Output Vital Signs (last 24 hours): Temp Pulse Resp BP Pulse Ox 97.8 F 55 L 19 135/73 95 06/29/17 01:00 06/29/17 01:00 06/29/17 01:00 06/29/17 01:00 06/29/17 01:00 Intake and Output: 06/29/17 06/29/17 06:59 18:59 Intake Total 200 300 Output Total 725 Balance 200 -425 - Medications Medications: Current Medications Carbidopa/Levodopa (Sinemet) 1 tab PO TID [facility] Last Admin: 06/28/17 18:36 Dose: 1 tab Carvedilol (Coreg) 3.125 mg PO BID [facility] Last Admin: 06/28/17 18:35 Dose: 3.125 mg Clonazepam (Klonopin) 0.5 mg PO BID PRN; Protocol PRN Reason: Anxiety Last Admin: 06/28/17 18:36 Dose: 0.5 mg Enoxaparin Sodium (Lovenox) 40 mg SC DAILY [facility] PRN Reason: Protocol Last Admin: 06/28/17 09:27 Dose: 40 mg Escitalopram Oxalate (Lexapro) 20 mg PO DAILY [facility] Last Admin: 06/28/17 09:27 Dose: 20 mg Gabapentin (Neurontin) 100 mg PO BID [facility] PRN Reason: Protocol Last Admin: 06/28/17 18:36 Dose: 100 mg Metoclopramide HCl (Reglan) 5 mg PO AC [facility] Last Admin: 06/29/17 08:05 Dose: 5 mg Pantoprazole Sodium (Protonix Ec Tab) 40 mg PO 0600 [facility] Last Admin: 06/29/17 05:59 Dose: 40 mg Polyethylene Glycol (Miralax) 17 gm PO DAILY [facility] Last Admin: 06/28/17 09:29 Dose: 17 gm Tramadol HCl (Ultram) 50 mg PO TID [facility] Last Admin: 06/28/17 18:37 Dose: 50 mg Zolpidem Tartrate (Ambien) 5 mg PO HS [facility] PRN Reason: Protocol Last Admin: 06/28/17 21:24 Dose: 5 mg - Labs Labs: PT 12.8 SECONDS (9.4-12.5) H 06/25/17 07:53 INR 1.16 (0.93-1.08) H 06/25/17 07:53 APTT 27.5 Seconds (25.1-36.5) 06/25/17 07:53 - Constitutional Appears: No Acute Distress - Head Exam Head Exam: ATRAUMATIC, NORMOCEPHALIC - Respiratory Exam Respiratory Exam: Clear to Ausculation Bilateral, NORMAL BREATHING PATTERN - Cardiovascular Exam Cardiovascular Exam: REGULAR RHYTHM, +S1, +S2 - GI/Abdominal Exam GI & Abdominal Exam: Soft, Normal Bowel Sounds. absent: Tenderness - Neurological Exam Neurological Exam: Alert, Awake, CN II-XII Intact, Oriented x3 Assessment and Plan - Assessment and Plan (Free Text) Assessment: s/p fall contusion right shoulder degenerative arthritis Parkinson's disease HTN Migraine Anxiety Plan: Patient is seen this morning. She is unable to go to the transitional care unit due to insurance issues. Physical therapy had recommended either [facility] or home with services. Patient will be discharged home today with visiting nurse services. She will receive outpatient physical therapy. She will continue her home medications.
[2017-06-29] MEDS: Enoxaparin 40 mg Syringe SC SCH (09:28)
[2017-06-29] MEDS: POLYETHYLENE GLYCOL 3350 17 GM/Dose PACKET PO SCH (09:28)
[2017-06-29 11:27] VITALS: BP 169/87; PULSE 60; RESP 20; TEMP 97.9
--- NOTE | 2017-07-01 05:40 | DS ---
BRIEF HISTORY: This is a 72-year-old female with history of Parkinson's disease, hypertension, gastroesophageal reflux, and arthritis who presented to the emergency room with pain after suffering from a fall at home. The patient had right hip surgery about eight weeks ago and was discharged from rehab about one week ago. She got out of her bed on her own and then fell backwards. She denied loss of consciousness, chest pain, or shortness of breath, but she was unable to ambulate when she arrived in the emergency room. HOSPITAL COURSE: The patient was admitted to the general medical floor. She was placed on Ultram for her pain. She was continued on Sinemet for her Parkinson's disease and omeprazole for her reflux. Dr. Williamson, who is an orthopedic surgeon, was consulted for the pain of her right leg. She had a contusion behind her right shoulder and of the right knee and ankle. She was started on physical therapy. She was recommended to go to the Transitional Care Unit or home with services. Initially, the patient agreed to go to the Transitional Care Unit; however, due to insurance issues, she was unable to go there and instead was discharged home with services. She will receive physical therapy as an outpatient. DISCHARGE MEDICATIONS: Sinemet 25/100 three times a day, Ambien 5 mg at night, Coreg 3.125 mg twice a day, Crestor 10 mg daily, Klonopin 0.5 mg three times a day, Lexapro 20 mg daily, Neurontin 100 mg twice a day, omeprazole 40 mg daily, Reglan 5 mg three times a day before meals, Voltaren 75 mg twice a day. DISCHARGE DIAGNOSES: Right leg pain, contusion of right shoulder, hypertension, Parkinson's disease, gastroesophageal reflux disease, migraine, contusion of right knee and right ankle, history of fall. Damir Fuentes MD MTDD
== END 2017-06-29 12:49 | disposition home or self-care (01) | DRG 605 ==
LOC: ED 06:13 → ERH 08:28 → 5RSO 11:41 → OBSVTOIN 06-26 15:11
PROVIDERS: ADMIT Internal Medicine; ATTEND Internal Medicine
DX: S40.011A Contusion of right shoulder, initial encounter (principal); G20 Parkinson's disease; S09.90XA Unspecified injury of head, initial encounter; W01.0XXA Fall on same level from slipping, tripping and stumbling without subsequent striking against object, initial encounter; M06.9 Rheumatoid arthritis, unspecified; I10 Essential (primary) hypertension; G43.909 Migraine, unspecified, not intractable, without status migrainosus; K21.9 Gastro-esophageal reflux disease without esophagitis; M16.10 Unilateral primary osteoarthritis, unspecified hip; Y92.009 Unspecified place in unspecified non-institutional (private) residence as the place of occurrence of the external cause; E78.00 Pure hypercholesterolemia, unspecified; E78.5 Hyperlipidemia, unspecified; F32.89 Other specified depressive episodes; F41.9 Anxiety disorder, unspecified; M85.80 Other specified disorders of bone density and structure, unspecified site; S80.01XA Contusion of right knee, initial encounter; Z79.899 Other long term (current) drug therapy; Z87.440 Personal history of urinary (tract) infections; Z87.891 Personal history of nicotine dependence; Z96.641 Presence of right artificial hip joint

== ENCOUNTER 2018-11-08 10:50 | Inpatient (IN) | payer MEDICARE, OTHER, BC ==
[2018-11-08 11:02] VITALS: BMI 34.3
[2018-11-08] MEDS ORDERED: Morphine 4 mg/ml ISec IVP STA (11:34)
--- NOTE | 2018-11-08 11:54 | ED PDOC ---
Arrival/HPI - General Chief Complaint: Trauma Time Seen by Provider: 11/08/18 11:13 Historian: Patient - History of Present Illness Narrative History of Present Illness (Text): 11/08/18 12:02 A 73 year old female, whose past medical history includes arthritis, Parkinson's disease, titanium right hip replacement and neuropathy, presents to the emergency department complaining of injury s/p fall. Patient reports she tripped and fell over carpet, hitting her face. As a resulted in having right shoulder pain and right elbow pain with associated neck pain. Patient denies any LOC, chest pain, shortness of breath, dizziness, headache, or any other complaints at this time. Past Medical History - Provider Review Nursing Documentation Reviewed: Yes - Infectious Disease Hx of Infectious Diseases: None - Tetanus Immunization Tetanus Immunization: Unknown - Reproductive Menopause: Yes - Cardiac Hx Cardiac Disorders: Yes Hx Hypertension: Yes - Pulmonary Hx Respiratory Disorders: Yes (SMOKED CIGARETTES H/O PK 1/2 QUIT) - Neurological Hx Neurological Disorder: Yes Hx Parkinson's Disease: Yes - HEENT Hx HEENT Disorder: No - Renal Hx Renal Disorder: No - Endocrine/Metabolic Hx Endocrine Disorders: No - Hematological/Oncological Hx Blood Disorders: No - Integumentary Hx Dermatological Disorder: Yes Other/Comment: 06-25-17 RIGHT HIP SCARRING FROM POST REPLACEMENT. BRUISED RIGHT SHOULDER FROM FALL. - Musculoskeletal/Rheumatological Hx Musculoskeletal Disorders: Yes Hx Arthritis: Yes Hx Falls: Yes (RECENT- 06-25-17) - Gastrointestinal Hx Gastrointestinal Disorders: Yes (GASTRITIS) Hx Gastroesophageal Reflux: Yes - Genitourinary/Gynecological Hx Genitourinary Disorders: Yes Hx Urinary Tract Infection: Yes - Psychiatric Hx Psychophysiologic Disorder: Yes (INSOMNIA,SMOKED CIGARETTES H/O) Hx Anxiety: Yes Hx Depression: Yes Hx Substance Use: No - Past Surgical History Past Surgical History: No Previous - Surgical History Other/Comment: R hip replacement - Anesthesia Hx Anesthesia: No - Suicidal Assessment Feels Threatened In Home Enviroment: No Family/Social History - Physician Review Nursing Documentation Reviewed: Yes Family/Social History: No Known Family HX Smoking Status: Former Smoker Hx Alcohol Use: No Hx Substance Use: No Hx Substance Use Treatment: No Allergies/Home Meds Allergies/Adverse Reactions: Allergies Penicillins Allergy (Verified 06/25/17 12:09) RASH Home Medications: Home Meds Medication Instructions Recorded Confirmed Carbidopa/Levodopa 1 tab PO TID 06/25/17 11/08/18 [Carbidopa-Levodopa 25-100 Tab] Carvedilol [Coreg] 3.125 mg PO BID 06/25/17 11/08/18 Clonazepam [Klonopin] 0.5 mg PO TID 06/25/17 11/08/18 Diclofenac Sodium [Voltaren] 75 mg PO BID 06/25/17 11/08/18 Escitalopram [Lexapro] 20 mg PO DAILY 06/25/17 11/08/18 Gabapentin [Neurontin] 100 mg PO BID 06/25/17 11/08/18 Metoclopramide [Reglan] 5 mg PO TID 06/25/17 11/08/18 Omeprazole 40 mg PO DAILY 06/25/17 11/08/18 Rosuvastatin Calcium [Crestor] 10 mg PO DAILY 06/25/17 11/08/18 Zolpidem [Ambien] 5 mg PO DAILY 06/25/17 11/08/18 Review of Systems - Physician Review All systems were reviewed & negative as marked: Yes - Review of Systems Respiratory: absent: SOB Cardiovascular: absent: Chest Pain Musculoskeletal: Neck Pain, Other (right shoulder and right elbow pain s/p fall) Neurological: absent: Headache, Dizziness, Other (no LOC) Physical Exam Vital Signs Reviewed: Yes Vital Signs Temp Pulse Resp BP Pulse Ox 11/08/18 10:50 98 F 65 18 190/95 H 99 Temperature: Afebrile Blood Pressure: Hypertensive Pulse: Regular Respiratory Rate: Normal Appearance: Positive for: Well-Appearing, Non-Toxic, Comfortable Pain Distress: None Mental Status: Positive for: Alert and Oriented X 3 - Systems Exam Head: Present: Atraumatic, Normocephalic Pupils: Present: PERRL Extroacular Muscles: Present: EOMI Conjunctiva: Present: Normal Mouth: Present: Other (dried blood in mouth, with swelling to right lower lip) Neck: Present: MIDLINE TENDERNESS, Other (cervical collar has been placed for patient) Respiratory/Chest: Present: Clear to Auscultation, Good Air Exchange. No: Respiratory Distress, Accessory Muscle Use Cardiovascular: Present: Regular Rate and Rhythm, Normal S1, S2. No: Murmurs Abdomen: No: Tenderness, Distention, Peritoneal Signs Back: Present: Normal Inspection Upper Extremity: Present: Tenderness (right shoulder and right elbow), Other (unable to lift right arm due to pain.) Lower Extremity: Present: Normal Inspection, Edema (mild edema bilaterally), Other (patient is able to lift both legs.) Neurological: Present: GCS=15, CN II-XII Intact, Speech Normal Skin: Present: Warm, Dry, Normal Color. No: Rashes Psychiatric: Present: Alert, Oriented x 3, Normal Insight, Normal Concentration Medical Decision Making ED Course and Treatment: 11/08/18 12:11 Impression: 73 year old female with injury s/p fall. Differential Diagnosis included but are not limited to: Head Trauma vs. Neck Fracture Plan: -- EKG -- Chest X-ray -- Labs -- Shoulder X-Ray -- Elbow X-Ray -- Pelvis X-ray -- Cervical Spinal X-Ray -- Head CT -- Maxillofacial CT -- Cervical Collar -- Pain Control -- Reassess and disposition Progress Notes: EKG: Ordered, reviewed, and independently interpreted the EKG. Rate : 76 BPM Rhythm : NSR Interpretation : Left Rio Deviation. Comparison : No previous EKG for comparison. 11/08/18 12:12 Case discussed with patient PMD, who requested for Dr. Williamson to be contacted to evaluated patient. 11/08/2018 12:48 Pelvis X-Ray IMPRESSION: Status post right hip arthroplasty. No acute fracture. Dictator: Eric Putnam MD 11/08/2018 12:53 Shoulder X-Ray IMPRESSION: Comminuted mildly displaced fracture right humeral head and neck. Dictator: Eric Putnam MD 11/08/2018 13:[address] IMPRESSION: Normal CT of the Head. no intracranial hemorrhage. Dictator: Eric Putnam MD 11/08/2018 13:[address] IMPRESSION: Nondisplaced left nasal fracture. No additional abnormality. Dictator: Eric Putnam MD 11/08/2018 13:[address] IMPRESSION: No fracture/dislocation. Degenerative disc disease at C5-6. Otherwise unremarkable examination. Dictator: Eric Putnam MD - Lab Interpretations I have reviewed the lab results: Yes - RAD Interpretation Radiology Orders: 11/08/18 11:29 CERVICAL SPINE W/O CONTRAST [CT] Stat HEAD W/O CONTRAST [CT] Stat CHEST ONE VIEW [RAD] Stat ELBOW RIGHT 3 VIEWS ROUTINE [RAD] Stat PELVIS ONE VIEW [RAD] Stat SHOULDER RIGHT [RAD] Stat 11/08/18 11:33 MAXILLOFACIAL W/O CONTRAST [CT] Stat - Medication Orders Current Medication Orders: Discontinued Medications Morphine Sulfate (Morphine) 4 mg IVP STAT STA Stop: 11/08/18 11:35 - Scribe Statement The provider has reviewed the documentation as recorded by the Adrian Leo Provider Scribe Attestation: All medical record entries made by the Scribe were at my direction and personally dictated by me. I have reviewed the chart and agree that the record accurately reflects my personal performance of the history, physical exam, medical decision making, and the department course for this patient. I have also personally directed, reviewed, and agree with the discharge instructions and disposition. Disposition/Present on Arrival - Present on Arrival Any Indicators Present on Arrival: No History of DVT/PE: No History of Uncontrolled Diabetes: No Urinary Catheter: No History of Decub. Ulcer: No History Surgical Site Infection Following: None - Disposition Have Diagnosis and Disposition been Completed?: Yes Diagnosis: Syncope, Hypertensive urgency, Humeral fracture Disposition: HOSPITALIZED Disposition Time: 14:36 Patient Plan: Telemetry Patient Problems: Current Active Problems Problem Status Onset Humeral fracture Acute Hypertensive urgency Acute Syncope Acute Condition: GUARDED
[2018-11-08 12:00] LABS: BASO # 0.01 K/mm3 (0.0-2.0); BASO % 0.1 % (0.0-3.0); EOS # 0.1 (0.0-0.7); EOS % 1.5 % (1.5-5.0); HEMOGLOBIN 13.1 g/dL (12.0-16.0); LYMPH # 1.4 (1.2-3.4); LYMPH % 17.8 % (22.0-35.0); MEAN CELL VOLUME 88.9 fl (80.0-105.0); MEAN CORPUSCULAR HEMOGLOBIN 29.1 pg (25.0-35.0); MEAN CORPUSCULAR HGB CONC 32.8 g/dl (31.0-37.0); MEAN PLATELET VOLUME 9.9 fl (7.0-11.0); MONO # 0.7 (0.1-0.6); MONO % 8.6 % (1.0-6.0); RBC 4.5 10^6/uL (3.5-6.1); RED CELL DISTRIBUTION WIDTH 13.9 % (11.5-14.5)
[2018-11-08 12:09] LABS: INR 1.12; PARTIAL THROMBOPLASTIN TIME 26.9 Seconds (26.9-38.3); PROTHROMBIN TIME 12.7 SECONDS (9.4-12.5)
[2018-11-08 12:10] LABS: ALB/GLOB RATIO 1.4 (1.1-1.8); ALBUMIN 4.4 g/dL (3.0-4.8); ALT/SGPT 7 U/L (7-56); AST/SGOT 25 U/L (14-36); BLOOD UREA NITROGEN 22 mg/dL (7-21); CALCIUM 9.5 mg/dL (8.4-10.5); GFR NON-AFRICAN AMERICAN > 60
--- NOTE | 2018-11-08 12:51 | RAD ---
Date of service: 11/08/2018 PROCEDURE: Radiographs of the pelvis. HISTORY: r/o fx COMPARISON: None. TECHNIQUE: Two view obtained. FINDINGS: BONES: Pelvic Bones: Unremarkable. Hips: Right hip arthroplasty. No fracture. JOINTS: Sacroiliac Joints: Unremarkable. Pubic Symphysis: Unremarkable. OTHER FINDINGS: None. IMPRESSION: Status post right hip arthroplasty. No acute fracture.
--- NOTE | 2018-11-08 12:56 | RAD ---
Date of service: 11/08/2018 PROCEDURE: Radiographs of the Right Shoulder HISTORY: r/o fx COMPARISON: No prior. TECHNIQUE: 3 views obtained. FINDINGS: BONES: Comminuted minimally displaced fracture right humeral neck and head. There is displacement of the greater tuberosity. JOINTS: Normal. Glenohumeral and acromioclavicular joints preserved. No osteoarthritis. SOFT TISSUES: Normal. OTHER FINDINGS: None. IMPRESSION: Comminuted mildly displaced fracture right humeral head and neck.
--- NOTE | 2018-11-08 13:24 | CT ---
Date of service: 11/08/2018 PROCEDURE: CT HEAD WITHOUT CONTRAST. HISTORY: r/o bleed COMPARISON: 06/25/2017 TECHNIQUE: Axial computed tomography images were obtained through the head/brain without intravenous contrast. Radiation dose: Total exam DLP = 924.05 mGy-cm. This CT exam was performed using one or more of the following dose reduction techniques: Automated exposure control, adjustment of the mA and/or kV according to patient size, and/or use of iterative reconstruction technique. FINDINGS: HEMORRHAGE: No intracranial hemorrhage. BRAIN: No mass effect or edema. No atrophy or chronic microvascular ischemic changes. VENTRICLES: Unremarkable. No hydrocephalus. CALVARIUM: Unremarkable. PARANASAL SINUSES: Unremarkable as visualized. No significant inflammatory changes. MASTOID AIR CELLS: Unremarkable as visualized. No inflammatory changes. OTHER FINDINGS: None. IMPRESSION: Normal CT of the Head. No intracranial hemorrhage.
--- NOTE | 2018-11-08 13:27 | CT ---
Date of service: 11/08/2018 PROCEDURE: CT MAXILLOFACIAL BONES WITHOUT CONTRAST HISTORY: r/o FX COMPARISON: None available. TECHNIQUE: Contiguous axial CT images of the maxillofacial bones were obtained. Coronal and sagittal reformats were generated. Radiation dose: Total exam DLP = 735.66 mGy-cm. This CT exam was performed using one or more of the following dose reduction techniques: Automated exposure control, adjustment of the mA and/or kV according to patient size, and/or use of iterative reconstruction technique. FINDINGS: NASAL BONES: Nondisplaced left nasal fracture. ORBITS: Unremarkable. PARANASAL SINUSES/ MASTOIDS: Clear. MAXILLA: Unremarkable. MANDIBLE/ TEMPOROMANDIBULAR JOINTS: Unremarkable. SKULL BASE: Unremarkable. TEMPORAL BONES: Middle ears and mastoid grossly unremarkable. OTHER FINDINGS: None. IMPRESSION: Nondisplaced left nasal fracture. No additional abnormality.
--- NOTE | 2018-11-08 13:38 | CT ---
Date of service: 11/08/2018 PROCEDURE: CT Cervical Spine without contrast HISTORY: r/o fx COMPARISON: None available. TECHNIQUE: Axial computed tomography images were obtained of the cervical spine without the use of intravenous contrast. Coronal and sagittal reformatted images were created and reviewed. Radiation dose: Total exam DLP = 504.8 mGy-cm. This CT exam was performed using one or more of the following dose reduction techniques: Automated exposure control, adjustment of the mA and/or kV according to patient size, and/or use of iterative reconstruction technique. FINDINGS: VERTEBRAE: The vertebral bodies are maintained in height. There is normal alignment. The atlantoaxial articulation and odontoid process are intact. DISCS/SPINAL CANAL/NEURAL FORAMINA: There is narrowing of the C5-6 intervertebral disc space consistent with degenerative disc disease. There is no central spinal stenosis. The remaining intervertebral disc spaces are maintained in height. PARASPINAL SOFT TISSUES: Unremarkable. OTHER FINDINGS: None. IMPRESSION: No fracture/dislocation. Degenerative disc disease at C5-6. Otherwise unremarkable examination.
--- NOTE | 2018-11-08 16:03 | CP.PCM.HP ---
History of Present Illness - History of Present Illness History of Present Illness: 73 year old female with history of Parkinson's disease, hypertension, osteoarthritis, atherosclerotic heart disease, neuropathy, and gastritis presented to the Emergency Room this morning after falling at home. Patient says she was walking in her home when she just tripped and fell down. She complains of pain in the right shoulder and elbow and there is bruising of her nose and face. She denies loss of consciousness, chest pain, or shortness of breath. Present on Admission - Present on Admission Any Indicators Present on Admission: No History of DVT/PE: No History of Uncontrolled Diabetes: No Urinary Catheter: No Decubitus Ulcer Present: No Review of Systems - Constitutional Constitutional: absent: Chills, Fever, Headache - Cardiovascular Cardiovascular: absent: Chest Pain, Diaphoresis, Dyspnea - Respiratory Respiratory: absent: Cough, Dyspnea, Hemoptysis - Gastrointestinal Gastrointestinal: absent: Abdominal Pain, Nausea, Vomiting Past Patient History - Infectious Disease Hx of Infectious Diseases: None - Tetanus Immunizations Tetanus Immunization: Unknown - Past Social History Smoking Status: Former Smoker - CARDIAC Hx Cardiac Disorders: Yes Hx Hypertension: Yes - PULMONARY Hx Respiratory Disorders: Yes (SMOKED CIGARETTES H/O PK 1/2 QUIT) - NEUROLOGICAL Hx Neurological Disorder: Yes Hx Parkinson's Disease: Yes - HEENT Hx HEENT Problems: No - RENAL Hx Chronic Kidney Disease: No - ENDOCRINE/METABOLIC Hx Endocrine Disorders: No - HEMATOLOGICAL/ONCOLOGICAL Hx Blood Disorders: No - INTEGUMENTARY Hx Dermatological Problems: Yes Other/Comment: 06-25-17 RIGHT HIP SCARRING FROM POST REPLACEMENT. BRUISED RIGHT SHOULDER FROM FALL. - MUSCULOSKELETAL/RHEUMATOLOGICAL Hx Musculoskeletal Disorders: Yes Hx Arthritis: Yes Hx Falls: Yes (RECENT- 06-25-17) - GASTROINTESTINAL Hx Gastrointestinal Disorders: Yes (GASTRITIS) Hx Gastroesophageal Reflux: Yes - GENITOURINARY/GYNECOLOGICAL Hx Genitourinary Disorders: Yes Hx Urinary Tract Infection: Yes - PSYCHIATRIC Hx Psychophysiologic Disorder: Yes (INSOMNIA,SMOKED CIGARETTES H/O) Hx Anxiety: Yes Hx Depression: Yes Hx Substance Use: No - SURGICAL HISTORY Other/Comment: R hip replacement - ANESTHESIA Hx Anesthesia: No Meds Allergies/Adverse Reactions: Allergies Allergy/AdvReac Type Severity Reaction Status Date / Time Penicillins Allergy RASH Verified 06/25/17 12:09 Physical Exam - Constitutional Appears: No Acute Distress - Respiratory Exam Respiratory Exam: Clear to Auscultation Bilateral, NORMAL BREATHING PATTERN - Cardiovascular Exam Cardiovascular Exam: REGULAR RHYTHM, +S1, +S2 - GI/Abdominal Exam GI & Abdominal Exam: Normal Bowel Sounds, Soft. absent: Tenderness - Extremities Exam Extremities exam: Positive for: pedal edema - Neurological Exam Neurological exam: Alert, Oriented x3 - Skin Additional comments: bruise and swelling of right side of lip, under right eye, and right arm Results - Vital Signs Recent Vital Signs: Last Vital Signs Temp 97.8 F 11/08/18 14:59 Pulse 103 H 11/08/18 14:59 Resp 20 11/08/18 14:59 BP 145/76 11/08/18 14:59 Pulse Ox 99 11/08/18 14:59 - Labs Result Diagrams: 11/12/18 06:20 11/12/18 06:20 Labs: Laboratory Results - last 24 hr 11/08/18 11/08/18 11/08/18 11:50 11:50 11:50 WBC 8.0 RBC 4.50 Hgb 13.1 Hct 40.0 MCV 88.9 MCH 29.1 MCHC 32.8 RDW 13.9 Plt Count 199 MPV 9.9 Neut % (Auto) 72.0 H Lymph % (Auto) 17.8 L [place] % (Auto) 8.6 H Eos % (Auto) 1.5 Baso % (Auto) 0.1 Lymph # (Auto) 1.4 [place] # (Auto) 0.7 H Eos # (Auto) 0.1 Baso # (Auto) 0.01 Absolute Neuts (auto) 5.74 PT 12.7 H INR 1.12 APTT 26.9 Sodium 141 Potassium 4.0 Chloride 101 Carbon Dioxide 32 Anion Gap 12 BUN 22 H Creatinine 0.9 Est GFR ( Amer) > 60 Est GFR (Non-Af Amer) > 60 Random Glucose 98 Calcium 9.5 Total Bilirubin 0.9 AST 25 ALT 7 Alkaline Phosphatase 75 Total Protein 7.6 Albumin 4.4 Globulin 3.2 Albumin/Globulin Ratio 1.4 Assessment & Plan - Assessment and Plan (Free Text) Assessment: s/p fall Nasal fracture Right shoulder fracture HTN Neuropathy Gastritis OA Parkinson's disease Anxiety/depression Plan: Patient has both fractures of the nose and the right shoulder. She is seen by orthopedics, Dr. Williamson. Ultram as needed for pain. continue Coreg and Losartan for hypertension. continue to monitor pressure as blood pressure was high on arrival to emergency room. continue gabapentin for neuropathy and protonix for gastritis. continue Sinemet for Parkinson's disease. continue Lexapro for depression and Klonopin as needed for anxiety.
--- NOTE | 2018-11-08 17:24 | RAD ---
Date of service: 11/08/2018 PROCEDURE: CHEST RADIOGRAPH, 1 VIEW HISTORY: r/o PTX COMPARISON: 06/25/2017 FINDINGS: LUNGS: Clear. PLEURA: No pneumothorax or pleural fluid seen. CARDIOVASCULAR: No aortic atherosclerotic calcification present. Normal. OSSEOUS STRUCTURES: No significant abnormalities. VISUALIZED UPPER ABDOMEN: Normal. OTHER FINDINGS: None. IMPRESSION: No active disease.
--- NOTE | 2018-11-08 17:24 | RAD ---
Date of service: 11/08/2018 PROCEDURE: Radiographs of the right elbow. HISTORY: r/o fx COMPARISON: No prior. TECHNIQUE: 3 views obtained. FINDINGS: BONES: Normal. No fracture. JOINTS: Normal. No osteoarthritis. SOFT TISSUES: Normal. JOINT EFFUSION: None. OTHER FINDINGS: None. IMPRESSION: Unremarkable radiographs of the right elbow.
[2018-11-08] MEDS ORDERED: Pneumococcal 23-Valent Vaccine IM ONE (18:14)
--- NOTE | 2018-11-08 20:12 | CARD ---
APPROVED REPORT Date of service: 11/08/2018 EKG Measurement Heart [id number] <Conclusion> Normal sinus rhythm Minimal voltage criteria for LVH, may be normal variant NDSTT abnormalities Abnormal ECG
--- NOTE | 2018-11-08 20:38 | CON ---
DATE: 11/08/2018 ORTHOPEDIC CONSULTATION HISTORY OF PRESENT ILLNESS: A 73-year-old female. The patient slipped and fell today, sustained an injury to her right proximal humerus. X-ray showed moderately displaced three-part fracture of the right proximal humerus and greater tuberosity and the humeral head angulated slightly, but it feels as though with a good collar and a cuff, no weightbearing on that right shoulder, and no range of motion of the right shoulder she should heal without any undo problems. We would have better results if it heals without surgery. She has good neurovascular status and is right hand dominant. She does walk with a walker, but that will have to take now because no weight is allowed on the right shoulder, no range of motion of the right shoulder, and she is to have constant assistance and protection. I will see her in the office in a week or 10 days and get her a better collar and a cuff. FINAL DIAGNOSES: A three-part fracture of the right proximal humerus, dominant side. We will take the conservative route by doing collar and a cuff for 4 to 6 weeks and follow her closely in the office after she is discharged from the hospital. Mina Williamson DO
[2018-11-09 07:12] LABS: BASO # 0.01 K/mm3 (0.0-2.0); BASO % 0.1 % (0.0-3.0); EOS % 0.2 % (1.5-5.0); HEMOGLOBIN 11.1 g/dL (12.0-16.0); LYMPH # 1.4 (1.2-3.4); MEAN CELL VOLUME 88.9 fl (80.0-105.0); MEAN CORPUSCULAR HEMOGLOBIN 28.7 pg (25.0-35.0); MEAN CORPUSCULAR HGB CONC 32.3 g/dl (31.0-37.0); MEAN PLATELET VOLUME 10.3 fl (7.0-11.0); MONO # 1.1 (0.1-0.6); RBC 3.87 10^6/uL (3.5-6.1); RED CELL DISTRIBUTION WIDTH 14.4 % (11.5-14.5); WHITE BLOOD COUNT 8.4 10^3/uL (4.5-11.0)
[2018-11-09] MEDS: Pantoprazole 40 mg EC Tab PO SCH (08:58)
[2018-11-09] MEDS ORDERED: Enoxaparin 40 mg Syringe SC SCH (10:00)
--- NOTE | 2018-11-09 14:40 | PN ---
DATE: 11/09/2018 SUBJECTIVE: The patient is in [facility], telemetry unit, room 262, bed 1. The patient was seen in the emergency room yesterday. After fall, the patient sustained fracture of the right upper femur. The patient also sustained injury to the elbow and the patient had head injury. She hit her face on the floor and sustained a fracture of the nasal bone and also sustained epistaxis secondary to the trauma. The patient was in discomfort and nonfunctioning right side of the arm. The patient has past history of Parkinson's disease, hypertension. The patient has history of gastritis, atherosclerotic heart disease. The patient has had previous fracture of hip and osteoarthritis involving both knees, with severe impairment to ambulation. The patient had difficulty in walking. The patient also has obesity problem. PHYSICAL EXAMINATION: GENERAL: She is resting in bed, inclined position. She is able to answer all questions. She has some edema of the base of the lips. VITAL SIGNS: Pulse is 75, blood pressure 107/71, respirations are 18, O2 saturation is 97% on 2 liters of oxygen. We will discontinue the oxygen and watch the patient. HEENT: Head is normocephalic except in the face that is from contusion of an area of the face, lip and the nose. NECK: Thyroid is not enlarged clinically. JVP is flat. LUNGS: Trachea central. Breath sounds are vesicular and diminished bilaterally. No localizing signs. HEART: Normal sinus rhythm. S1 and S2 present. ABDOMEN: Soft. Liver and spleen not palpable. No masses noted. CENTRAL NERVOUS SYSTEM: She is conscious, rationale, oriented. She has history of Parkinson's syndrome. LIST OF MEDICATIONS: The patient is on Coreg 12.5 mg b.i.d., losartan 50 mg daily, Klonopin 0.5 mg b.i.d., Lasix 40 mg b.i.d., Lipitor 20 mg daily, Lovenox 40 mg subcutaneously prophylaxis treatment for prevention of DVT. The patient is on gabapentin 100 mg b.i.d., pantoprazole 40 mg daily and metoclopramide that is Reglan 5 mg 15 minutes before each meal 3 times a day, breakfast, lunch and dinner. The patient is also getting Sinemet 25/100 mg three times a day for Parkinson's disease. She is on Ultram 50 mg three times a day p.r.n. for pain. Diet is heart healthy diet. LABORATORY DATA: The patient's blood work; the hemoglobin is 11.1, the patient's hemoglobin yesterday was 13.1. White count differential is within normal range. Chemistry; the patient shows creatinine of 1.6 and BUN of 30. The patient is to be hydrated orally; push p.o. fluids. Chest x-ray did not reveal any pathology. EKG shows nonspecific ST-T wave changes. She has atherosclerotic heart disease. ASSESSMENT AND PLAN: We will continue current management. The patient was seen by the orthopedic surgeon and we will have physical therapy evaluate the patient tomorrow. Claudette Fuentes MD MTDD
[2018-11-09] MEDS ORDERED: Sodium Chloride 0.9% 1,000 ML IV SCH (22:15)
[2018-11-10] MEDS: Pantoprazole 40 mg EC Tab PO SCH ×2 (06:31→08:31)
[2018-11-10 07:21] LABS: CALCIUM 8.2 mg/dL (8.4-10.5)
[2018-11-10] MEDS: Dextrose 5%/0.45% NS 1,000 ML IV SCH ×2 (08:45→22:18)
--- NOTE | 2018-11-10 10:13 | PN ---
DATE: 11/10/2018 LOCATION: Room 262, bed 2. The patient is tolerating the right shoulder fracture with a collar and cuff and she is going to go on to [facility] soon for subacute rehab and I will follow her there. Couple of more weeks, the pain would be much less and we could start doing pendulum exercise, but I will follow her at [facility] and we could repeat her serial x-rays of that right shoulder. Mina Williamson DO
--- NOTE | 2018-11-10 10:24 | PN ---
DATE: 11/10/2018 SUBJECTIVE: The patient is in [facility], telemetry unit, room 262, bed 1. The patient was admitted after she had a fall and broke humerus bone in the shoulder. The patient had sustained facial injury. The patient has past history of Parkinson, osteoarthritis, hypertension, and reflux esophagitis. The patient has history of hyperlipidemia, depression. The patient is seen this morning, she is awake and alert. O2 sat was 94% on room air. Oxygen was temporarily discontinued. The patient is on IV fluid. She gets saline at 75 mL an hour, because she has hypotension, starting from previous injury and the patient is on multiple medications, brought to the patient to the emergency room, held at this time. PHYSICAL EXAMINATION: VITAL SIGNS: Pulse is 60, blood pressure 92/60, respirations are 19. The patient's O2 sat is 99% on 2 liters oxygen and 94% without oxygen. We will keep the oxygen now at this point. LUNGS: Clinically clear. HEART: Normal sinus rhythm. S1 and S2 present. Sinus bradycardia. ABDOMEN: Soft. Liver and spleen not palpable. CENTRAL NERVOUS SYSTEM: She is conscious, rationale, oriented. No focal neurological deficits. The patient has obesity and fluid retention. MEDICATIONS: The patient's list of medications consists of Colace now for constipation. The patient will get acute treatment with Senokot three tablets start. The patient is Klonopin 0.5 mg b.i.d., Lexapro 20 mg daily, Lipitor 20 mg daily. The patient is on Lovenox for prevention of DVT, gabapentin 100 mg twice a day, pantoprazole 40 mg daily. The patient is on Reglan 5 mg three times a day before meals. The patient gets Sinemet 25/100 mg three times a day, tramadol 50 mg three times a day for pain. She is on saline as mentioned 75 mL an hour, we will continue the saline drip at that rate. LABORATORY DATA: The patient's blood work shows that her creatinine has grown up somewhat, hemoglobin is 11.1. The BUN is 43 and creatinine is 1.9. There is some evidence of dehydration. At this point, we will continue the IV fluids. ASSESSMENT AND PLAN: The patient is on heart healthy diet. Her prognosis is guarded. Condition is clinically stable. She has some temporary hypotension, but cardiovascular condition seem to be stable. Claudette Fuentes MD
[2018-11-10] MEDS: Enoxaparin 30 mg Syringe SC SCH (11:53)
[2018-11-11 07:28] LABS: EOS # 0.1 (0.0-0.7); EOS % 1.5 % (1.5-5.0); HEMOGLOBIN 9.7 g/dL (12.0-16.0); LYMPH # 0.9 (1.2-3.4); LYMPH % 14.7 % (22.0-35.0); MEAN CELL VOLUME 88.2 fl (80.0-105.0); MEAN CORPUSCULAR HEMOGLOBIN 28.7 pg (25.0-35.0); MEAN CORPUSCULAR HGB CONC 32.6 g/dl (31.0-37.0); MEAN PLATELET VOLUME 9.7 fl (7.0-11.0); MONO # 0.8 (0.1-0.6); MONO % 12.9 % (1.0-6.0); RBC 3.38 10^6/uL (3.5-6.1); RED CELL DISTRIBUTION WIDTH 14.5 % (11.5-14.5); WHITE BLOOD COUNT 6.1 10^3/uL (4.5-11.0)
[2018-11-11 07:45] LABS: CALCIUM 8.6 mg/dL (8.4-10.5)
[2018-11-11] MEDS: Pantoprazole 40 mg EC Tab PO SCH (07:52)
[2018-11-11] MEDS ORDERED: Potassium Chloride 20 mEq ER Tab PO ONE (08:09)
[2018-11-11] MEDS ORDERED: Bupivacaine 0.5% Inj(30mL) IJ ONE (08:12)
[2018-11-11] MEDS ORDERED: MethylPREDNISolone Depo 40 mg/ml Inj IM ONE (08:12)
[2018-11-11 08:41] LABS: IRON 42 ug/dL (45-180)
[2018-11-11 08:50] LABS: % IRON SATURATION 15 % (20-55); TOTAL IRON BINDING CAPACITY 276 ug/dL (265-497)
[2018-11-11] MEDS ORDERED: Magnesium Citrate Oral SOL (300 ml) PO ONE (09:09)
[2018-11-11] MEDS: Enoxaparin 30 mg Syringe SC SCH (09:32)
--- NOTE | 2018-11-11 09:51 | PN ---
DATE: 11/11/2018 LOCATION: The patient is in [facility], room 262, bed 1. SUBJECTIVE: She is seen this morning lying down in bed. She seemed to be comfortable, electively nausea has subsided. Pain in the right shoulder present only on movement. The patient has difficulty in walking at this time. Past history of hypertension, Parkinson's disease, and osteoarthritis. The patient has had hip fracture in the past, right leg. PHYSICAL EXAMINATION: VITAL SIGNS: This morning the vital signs; pulse is 94, blood pressure 106/57, respirations are 20, and O2 saturation is 94% on 2 liters of oxygen. LUNGS: Trachea clear. HEART: Normal sinus rhythm. S1 and S2 present. ABDOMEN: Soft. Liver and spleen not palpable. The patient has constipation. Four days, no bowel movement. CENTRAL NERVOUS SYSTEM: No focal deficit. She has history of Parkinson's disease. MEDICATIONS: The patient's medications consist of Colace. The patient is on Coreg 3.125 mg twice a day, Klonopin 0.5 mg twice a day, Lexapro 20 mg daily, Lipitor 20 mg daily, Lovenox 30 mg subcutaneous every 24 hours. The patient gets gabapentin 100 mg twice a day, pantoprazole 40 mg daily, Sinemet 25/100 one three times a day, tramadol 50 mg three times a day p.r.n. for pain, and saffron for nausea. LABORATORY DATA: The patient's blood work; the hemoglobin dropped to 9.7, it was 11.1 yesterday and 13.1 the day before. ASSESSMENT AND PLAN: She has not had a bowel movement. We will magnesia. Hopefully, she will move her bowels today. The patient needs physical therapy evaluation and ambulation. The patient also complains of severe pain in the right knee. We will alert the orthopedic surgeon to evaluate and treat that bursitis in the right knee. Her overall prognosis is guarded. Condition is clinically improving slowly. Claudette Fuentes MD
--- NOTE | 2018-11-11 10:45 | PN ---
DATE: 11/11/2018 UPDATED REPORT LOCATION: Room 272, bed 1. SUBJECTIVE: The patient with fracture right shoulder, came in the hospital few days ago and she is using collar and a cuff for protection and she is tolerating that well. She was given prescriptions for therapy, because of some right knee pain, she cannot ambulate well with pain in her left hand, she usually uses a walker, so have to inject the right knee with Depo-Medrol, Marcaine probably tomorrow. she also has some pain symptoms in the knee, so she could walk better. She initially fx injured her shoulder on 11/08/2018 and she is tolerating the fracture well before she goes home while re-x-rayed her shoulder to make sure that any collateral placed and we will start physical therapy for ambulation and I will inject the right knee with Depo-Medrol when comes to floor, hopefully tomorrow. Mina Williamson DO MTDCindy
[2018-11-11 12:30] LABS: FOLATE > 20.0 ng/mL
--- NOTE | 2018-11-11 12:59 | CP.PCM.APN ---
Subjective - Date & Time of Evaluation Date of Evaluation: 11/11/18 Time of Evaluation: 09:00 - Subjective Subjective: pt seen and examined at bedside, pt with right arm in sling, reports intermittent pain Review of Systems - Cardiovascular Cardiovascular: absent: As Per HPI, Acrocyanosis, Chest Pain, Chest Pain at Rest, Chest Pain with Activity, Claudication, Diaphoresis, Dyspnea, Dyspnea on Exertion, Edema, Irregular Heart Rhythm, Pain Radiating to Arm/Neck/Jaw, Leg Edema, Leg Ulcers, Lightheadedness, Orthopnea, Palpitations, Paroxysmal Nocturnal Dyspnea, Pedal Edema, Radiating Pain, Rapid Heart Rate, Slow Heart Rate, Syncope, Other Objective - Vital Signs/Intake and Output Vital Signs (last 24 hours): Temp Pulse Resp BP Pulse Ox 98.3 F 92 H 18 129/83 94 L 11/11/18 12:00 11/11/18 12:00 11/11/18 12:00 11/11/18 12:00 11/11/18 06:00 Intake and Output: 11/11/18 11/11/18 06:59 18:59 Intake Total 900 Output Total 600 Balance 300 - Medications Medications: Current Medications Atorvastatin Calcium (Lipitor) 20 mg PO DIN [facility] Last Admin: 11/10/18 18:00 Dose: 20 mg Carbidopa/Levodopa (Sinemet 10/100) 1 tab PO TID [facility] Last Admin: 11/11/18 09:35 Dose: 1 tab Carvedilol (Coreg) 3.125 mg PO BID [facility] Last Admin: 11/11/18 09:34 Dose: 3.125 mg Clonazepam (Klonopin) 0.5 mg PO BID PRN; Protocol PRN Reason: Anxiety Last Admin: 11/10/18 21:13 Dose: 0.5 mg Docusate Sodium (Colace) 100 mg PO TID [facility] Last Admin: 11/11/18 09:32 Dose: 100 mg Enoxaparin Sodium (Lovenox) 30 mg SC DAILY [facility]; Protocol Last Admin: 11/11/18 09:32 Dose: 30 mg Escitalopram Oxalate (Lexapro) 20 mg PO DAILY [facility] Last Admin: 11/11/18 09:33 Dose: 20 mg Gabapentin (Neurontin) 100 mg PO BID [facility]; Protocol Last Admin: 11/11/18 09:33 Dose: 100 mg Dextrose/Sodium Chloride (Dextrose 5%/0.45% Ns 1000 Ml) 1,000 mls @ 75 mls/hr IV .[id number] [facility] Last Admin: 11/10/18 22:18 Dose: 75 mls/hr Ondansetron HCl (Zofran Inj) 4 mg IVP Q4H PRN PRN Reason: Nausea/Vomiting Pantoprazole Sodium (Protonix Ec Tab) 40 mg PO 0600 [facility] Tramadol HCl (Ultram) 50 mg PO TID PRN PRN Reason: Pain, severe (8-10) Last Admin: 11/09/18 08:58 Dose: 50 mg - Labs Labs: 11/11/18 07:00 11/11/18 07:00 PT 12.7 SECONDS (9.4-12.5) H 11/08/18 11:50 INR 1.12 11/08/18 11:50 APTT 26.9 Seconds (26.9-38.3) 11/08/18 11:50 - Constitutional Appears: No Acute Distress - Head Exam Head Exam: NORMOCEPHALIC - Eye Exam Eye Exam: Normal appearance Pupil Exam: NORMAL ACCOMODATION - ENT Exam ENT Exam: Normal Exam - Neck Exam Neck Exam: Normal Inspection - Respiratory Exam Respiratory Exam: Decreased Breath Sounds, NORMAL BREATHING PATTERN - Cardiovascular Exam Cardiovascular Exam: +S1, +S2 - GI/Abdominal Exam GI & Abdominal Exam: Soft, Normal Bowel Sounds - Extremities Exam Extremities Exam: Tenderness (right shoulder ) - Neurological Exam Neurological Exam: Alert, Awake Additional comments: WOLFE Assessment and Plan - Assessment and Plan (Free Text) Plan: ITS Impressions Cervical Spine CT 11/08/18 11:29 IMPRESSION: No fracture/dislocation. Degenerative disc disease at C5-6. Otherwise unremarkable examination. Chest X-Ray 11/08/18 11:29 IMPRESSION: No active disease. Elbow X-Ray 11/08/18 11:29 IMPRESSION: Unremarkable radiographs of the right elbow. Head CT 11/08/18 11:29 IMPRESSION: Normal CT of the Head. No intracranial hemorrhage. Pelvis X-Ray 11/08/18 11:29 IMPRESSION: Status post right hip arthroplasty. No acute fracture. Shoulder X-Ray 11/08/18 11:29 IMPRESSION: Comminuted mildly displaced fracture right humeral head and neck. Maxillofacial CT 11/08/18 11:33 IMPRESSION: Nondisplaced left nasal fracture. No additional abnormality. a/p 73 yr old female with pmh sig for parkinsons, htn, OA, CAD, neuropathy, gastritis who presented ti the ED s/p falling at home. pt was admitted for further eval with orthopedic surgeon. Pt shoulder xray revealed Comminuted mildly displaced fracture right humeral head and neck. pt is being managed conservatively by orthopedic surgeon with collar and cuff for 4 to 6 wks per recommendations. pt was recommended for [facility] and was accepted to [facility]. per discussion with PMD pt to continue with IV hydration today, will have repeat xray of shoulder fracture in am and may be clinically ready for transfer in am to [facility] per pmd. plan of care discussed in IDT rounds will continue to follow BPCI/TIC - BPCIA/TIC Educated pt/family on BPCIA/CIR/Med to Bed Programs: N/A Flyers given, including [facility] Beneficiary letter: N/A Pt/family verbalized understanding & agreed to program: N/A
[2018-11-11] MEDS: Dextrose 5%/0.45% NS 1,000 ML IV SCH (22:11)
[2018-11-12 00:03] VITALS: O2SAT 95
[2018-11-12] MEDS ORDERED: Pantoprazole 40 mg EC Tab PO SCH (06:00)
[2018-11-12 07:12] LABS: BLOOD UREA NITROGEN 19 mg/dL (7-21); CALCIUM 8.8 mg/dL (8.4-10.5); GFR NON-AFRICAN AMERICAN 54
[2018-11-12 07:22] LABS: EOS # 0.1 (0.0-0.7); EOS % 1.9 % (1.5-5.0); HEMOGLOBIN 9.3 g/dL (12.0-16.0); LYMPH # 0.8 (1.2-3.4); LYMPH % 15.9 % (22.0-35.0); MEAN CELL VOLUME 89.2 fl (80.0-105.0); MEAN CORPUSCULAR HEMOGLOBIN 28.7 pg (25.0-35.0); MEAN CORPUSCULAR HGB CONC 32.2 g/dl (31.0-37.0); MEAN PLATELET VOLUME 9.7 fl (7.0-11.0); MONO # 0.7 (0.1-0.6); MONO % 12.5 % (1.0-6.0); RBC 3.24 10^6/uL (3.5-6.1); RED CELL DISTRIBUTION WIDTH 14.2 % (11.5-14.5); WHITE BLOOD COUNT 5.2 10^3/uL (4.5-11.0)
--- NOTE | 2018-11-12 08:05 | CP.PCM.PN ---
Subjective - Date & Time of Evaluation Date of Evaluation: 11/12/18 Time of Evaluation: 07:40 - Subjective Subjective: Patient is seen this morning. She had 2 small bowel movements yesterday but says that she feels as if there is stool in her rectum. Objective - Vital Signs/Intake and Output Vital Signs (last 24 hours): Temp Pulse Resp BP Pulse Ox 97.6 F 73 20 120/78 95 11/12/18 06:00 11/12/18 06:00 11/12/18 06:00 11/12/18 06:00 11/12/18 06:00 Intake and Output: 11/12/18 11/12/18 06:59 18:59 Intake Total 2520 Output Total 2500 Balance 20 - Medications Medications: Current Medications Atorvastatin Calcium (Lipitor) 20 mg PO DIN [facility] Last Admin: 11/11/18 22:09 Dose: 20 mg Carbidopa/Levodopa (Sinemet 10/100) 1 tab PO TID [facility] Last Admin: 11/11/18 22:12 Dose: 1 tab Carvedilol (Coreg) 3.125 mg PO BID [facility] Last Admin: 11/11/18 22:10 Dose: 3.125 mg Clonazepam (Klonopin) 0.5 mg PO BID PRN; Protocol PRN Reason: Anxiety Last Admin: 11/11/18 22:09 Dose: 0.5 mg Docusate Sodium (Colace) 100 mg PO TID [facility] Last Admin: 11/11/18 22:09 Dose: 100 mg Enoxaparin Sodium (Lovenox) 30 mg SC DAILY [facility]; Protocol Last Admin: 11/11/18 09:32 Dose: 30 mg Escitalopram Oxalate (Lexapro) 20 mg PO DAILY [facility] Last Admin: 11/11/18 09:33 Dose: 20 mg Gabapentin (Neurontin) 100 mg PO BID [facility]; Protocol Last Admin: 11/11/18 22:09 Dose: 100 mg Dextrose/Sodium Chloride (Dextrose 5%/0.45% Ns 1000 Ml) 1,000 mls @ 75 mls/hr IV .[id number] [facility] Last Admin: 11/11/18 22:11 Dose: 75 mls/hr Iron Sucrose 200 mg/ Sodium (Chloride) 110 mls @ 110 mls/hr IVPB ONCE ONE Stop: 11/12/18 08:09 Ondansetron HCl (Zofran Inj) 4 mg IVP Q4H PRN PRN Reason: Nausea/Vomiting Pantoprazole Sodium (Protonix Ec Tab) 40 mg PO 0600 [facility] Last Admin: 11/12/18 05:28 Dose: 40 mg Tramadol HCl (Ultram) 50 mg PO TID PRN PRN Reason: Pain, severe (8-10) Last Admin: 11/09/18 08:58 Dose: 50 mg - Labs Labs: 11/12/18 06:20 11/12/18 06:20 PT 12.7 SECONDS (9.4-12.5) H 11/08/18 11:50 INR 1.12 11/08/18 11:50 APTT 26.9 Seconds (26.9-38.3) 11/08/18 11:50 - Constitutional Appears: No Acute Distress - Head Exam Head Exam: ATRAUMATIC, NORMOCEPHALIC - Respiratory Exam Respiratory Exam: Clear to Ausculation Bilateral, NORMAL BREATHING PATTERN - Cardiovascular Exam Cardiovascular Exam: REGULAR RHYTHM, +S1, +S2 - GI/Abdominal Exam GI & Abdominal Exam: Soft, Normal Bowel Sounds. absent: Tenderness - Extremities Exam Extremities Exam: Pedal Edema - Neurological Exam Neurological Exam: Alert, Awake, Oriented x3 Assessment and Plan - Assessment and Plan (Free Text) Assessment: s/p fall Right shoulder fracture Fractured nose Parkinson's disease HTN Iron deficiency anemia Anxiety/Depression Plan: Patient feels stool in rectum. Manual disimpaction done by Dr. Nicolas Fuentes. Large amount of stool was removed. Patient's hemoglobin continues to drop. Iron is low. will order Venofer infusion. BUN and creatinine have normalized. Will discontinue IV fluids. continue PT.
[2018-11-12] MEDS: Enoxaparin 30 mg Syringe SC SCH (09:11)
--- NOTE | 2018-11-12 11:52 | CP.PCM.PCO ---
Physician Communication Note - Physician Communication Note Physician Communication Note: spoke to Dr Katz pt cleared for dc to [facility] pt set up for 6pm tx.
[2018-11-12 14:32] VITALS: RESP 18
[2018-11-12 17:11] VITALS: BP 131/79; PULSE 64; TEMP 98.4
--- NOTE | 2018-11-13 03:32 | PROCN ---
DATE: 11/12/2018 POST PROCEDURE REPORT PROCEDURE: The patient was admitted to the hospital on 11/08/2018 with a comminuted three-part fracture of the right proximal humerus. She has pain in her right knee from a past history of osteoarthritis, so we took the opportunity to inject her right knee with Depo-Medrol and Marcaine as we cleaned the knee with alcohol and injected Depo-Medrol and Marcaine into that right symptomatic knee so she could endure therapy better. She usually walks with a walker when she had a good right shoulder, but now that the right shoulder cannot be used she is going to have to put more weight on the left arm and so because the right shoulder fracture is in a sling, so the injection of the right arthritic knee should help her pain and endure ambulation. She is going to [facility] today, which is 11/12/2018, and I will follow her there and we will repeat the x-ray of the shoulder at that facility. FINAL DIAGNOSES: Osteoarthritis of right knee, status post right shoulder fracture. Injected the right knee for pain relief with Depo-Medrol and Marcaine. Mina Williamson DO
== END 2018-11-12 20:04 | DRG 563 ==
LOC: ED 10:50 → ERH 14:44 → 2RNO 16:08
PROVIDERS: ADMIT Internal Medicine; ATTEND Internal Medicine
PROC: 3E0U33Z Introduction of Anti-inflammatory into Joints, Percutaneous Approach (ICD-10-PCS; principal; 2018-11-12)
PROC: 3E0U3BZ Introduction of Anesthetic Agent into Joints, Percutaneous Approach (ICD-10-PCS; 2018-11-12)
DX: S42.201A Unspecified fracture of upper end of right humerus, initial encounter for closed fracture (principal); S02.2XXA Fracture of nasal bones, initial encounter for closed fracture; I16.0 Hypertensive urgency; G20 Parkinson's disease; M50.322 Other cervical disc degeneration at C5-C6 level; K29.70 Gastritis, unspecified, without bleeding; I25.10 Atherosclerotic heart disease of native coronary artery without angina pectoris; G62.9 Polyneuropathy, unspecified; E86.0 Dehydration; F41.9 Anxiety disorder, unspecified; M17.11 Unilateral primary osteoarthritis, right knee; M71.561 Other bursitis, not elsewhere classified, right knee; K21.9 Gastro-esophageal reflux disease without esophagitis; D50.9 Iron deficiency anemia, unspecified; E78.5 Hyperlipidemia, unspecified; F32.9 Major depressive disorder, single episode, unspecified; I95.9 Hypotension, unspecified; K21.0 Gastro-esophageal reflux disease with esophagitis; I10 Essential (primary) hypertension; R55 Syncope and collapse; Z96.641 Presence of right artificial hip joint; E66.9 Obesity, unspecified; Y93.01 Activity, walking, marching and hiking; W01.0XXA Fall on same level from slipping, tripping and stumbling without subsequent striking against object, initial encounter; Y92.009 Unspecified place in unspecified non-institutional (private) residence as the place of occurrence of the external cause; Z87.891 Personal history of nicotine dependence; Z68.36 Body mass index [BMI] 36.0-36.9, adult; Z88.0 Allergy status to penicillin